=== PATIENT | female | born 1980 | race African-American/Black ===

== ENCOUNTER 2019-06-20 06:24 | Inpatient (IN) | payer MEDICAID ==
[2019-06-20] VITALS (9 sets, daily range): BP systolic 111–153; BP diastolic 70–106
[~2019-06-20] VITALS: Ht 152.4 cm; Wt 54.0 kg
[2019-06-20] MEDS ORDERED: IV NORMAL SALINE 1000ML BAG 1,000 ML IV SCH (06:45)
[2019-06-20] MEDS ORDERED: ONDANSETRON PF 4 MG/2 ML VIAL. IV ONE (07:00)
[2019-06-20] MEDS ORDERED: FAMOTIDINE 20 MG/2 ML VIAL IVP ONE (07:00)
[2019-06-20] MEDS ORDERED: ASPIRIN CHEWABLE 81 MG TABLET. PO ONE (07:00)
[2019-06-20 07:18] LABS: BASO % 1 % (0-3); EOS % 0 % (0-3); HEMATOCRIT 36.6 % (36.0-47.0); HEMOGLOBIN 11.8 g/dL (13.0-17.5); LYMPH # 1.4 x10^3/uL (1.0-4.8); LYMPH % 24 % (24-48); MEAN CORPUSCULAR HEMOGLOBIN 31 pg (25-35); MEAN CORPUSCULAR HGB CONC 32 g/dL (31-37); MEAN CORPUSCULAR VOLUME 95 fL (79-100); MONO # 0.4 x10^3/uL (0.0-1.1); MONO % 7 % (0-9); NEUT % 69 % (31-73); PLATELET COUNT 337 x10^3/uL (140-400); RED BLOOD COUNT 3.84 x10^6/uL (3.50-5.40); RED CELL DISTRIBUTION WIDTH 15.5 % (11.5-14.5); WHITE BLOOD COUNT 5.8 x10^3/uL (4.0-11.0)
--- NOTE | 2019-06-20 07:41 | RAD ---
AP chest x-ray HISTORY: Chest pain FINDINGS: Heart size normal. Mediastinal silhouette is normal. No pneumothorax, pulmonary opacities or pleural effusions. The bones are unremarkable. IMPRESSION: No acute process. Electronically signed by: Jim Dillon MD (06/20/2019 7:38 AM) [facility]
[2019-06-20 07:55] LABS: PROTHROMBIN TIME PATIENT 13.9 SEC (11.7-14.0)
[2019-06-20 08:07] LABS: ALBUMIN 3.7 g/dL (3.4-5.0); ALBUMIN/GLOBULIN RATIO 0.8 (1.0-1.7); CALCIUM 9.4 mg/dL (8.5-10.1); CREATININE 1.2 mg/dL (0.6-1.0); GFR 61.2; TOTAL BILIRUBIN 0.5 mg/dL (0.2-1.0); TOTAL PROTEIN 8.4 g/dL (6.4-8.2)
[2019-06-20 08:16] LABS: POTASSIUM 2.9 mmol/L (3.5-5.1)
[2019-06-20 08:52] LABS: BASE EXCESS ABG -7 mmol/L (-3-3); HCO3 ABG 18 mmol/L (21-28); PCO2 ABG 33 mmHg (35-46); PO2 ABG 96 mmHg (85-108); SAT O2 ABG 97 % (92-99)
[2019-06-20] MEDS ORDERED: IV NORMAL SALINE 1000ML BAG 1,000 ML IV ONE (09:00)
[2019-06-20 09:06] LABS: FIO2 ABG 21% RA
--- NOTE | 2019-06-20 09:09 | PHYS DOC ---
Past Medical History Past Medical History: Diabetes-Type I, Other Additional Past Medical Histor: gastroparesis Past Surgical History: Tubal ligation Alcohol Use: None Drug Use: None Adult General Chief Complaint Chief Complaint: CHEST PAIN HPI HPI Patient is a 38 year old female with history of type 1 diabetes who presents with complaining of chest pain. Patient complaining of constant substernal sharp chest pain for the last 3 days with radiation to her back and associated with nausea and frequent episodes of vomiting and one episode of diarrhea. Patient complaining of palpitation and shortness of breath and dizziness. Patient rated her pain 10 over 10. Patient states she was seen at [facility] 3 days ago and discharged home after negative evaluation at her pain is not getting better. Patient states she did not check her blood sugar for the last few days but took her medication. Patient is very anxious and crying during evaluation. Review of Systems Review of Systems Constitutional: Denies fever or chills [] Eyes: Denies change in visual acuity, redness, or eye pain [] HENT: Denies nasal congestion or sore throat [] Respiratory: Denies cough or shortness of breath [] Cardiovascular: No additional information not addressed in HPI [] GI: Denies abdominal pain, bloody stools, reports nausea, vomiting, diarrhea [] : Denies dysuria or hematuria [] Musculoskeletal: Denies back pain or joint pain [] Integument: Denies rash or skin lesions [] Neurologic: Denies headache, focal weakness or sensory changes [] Endocrine: Denies polyuria or polydipsia [] All other systems were reviewed and found to be within normal limits, except as documented in this note. Current Medications Current Medications Current Medications Medications (Trade) Dose Ordered Sig/Michel Start Time Stop Time Status Last Admin Dose Admin Aspirin (Children'S Aspirin) 324 mg 1X ONCE 06/20/19 07:00 06/20/19 07:01 DC 06/20/19 07:18 324 MG Famotidine (Pepcid Vial) 20 mg 1X ONCE 06/20/19 07:00 06/20/19 07:01 DC 06/20/19 07:18 20 MG Lorazepam (Ativan Inj) 1 mg 1X ONCE 06/20/19 07:30 06/20/19 07:31 DC 06/20/19 07:18 1 MG Ondansetron HCl (Zofran) 4 mg 1X ONCE 06/20/19 07:00 06/20/19 07:01 DC 06/20/19 07:18 4 MG Sodium Chloride 1,000 ml @ 1,000 mls/hr 1X ONCE 06/20/19 09:00 06/20/19 09:59 DC 06/20/19 09:09 1,000 MLS/HR Allergies Allergies Allergies Coded Allergies Type Severity Reaction Last Updated Verified No Known Drug Allergies 06/20/19 No Physical Exam Physical Exam Constitutional: Well developed, well nourished, moderate distress, non-toxic appearance. [] HENT: Normocephalic, atraumatic, oropharynx dry, no oral exudates, nose normal. [] Eyes: PERRLA, EOMI, conjunctiva normal, no discharge. [] Neck: Normal range of motion, no tenderness, supple, no stridor. [] Cardiovascular: Tachycardia, no murmur [] Lungs & Thorax: Bilateral breath sounds clear to auscultation [] Abdomen: Bowel sounds normal, soft, no tenderness, reproducible epigastric guarding, no masses, no pulsatile masses. [] Skin: Warm, dry, no erythema, no rash. [] Back: No tenderness, no CVA tenderness. [] Extremities: No tenderness, no cyanosis, no clubbing, ROM intact, no edema. [] Neurologic: Alert and oriented X 3, normal motor function, normal sensory function, no focal deficits noted. [] Psychologic: Affect anxious and tearful. Current Patient Data Vital Signs Vital Signs Date Time Temp Pulse Resp B/P (MAP) Pulse Ox O2 Delivery O2 Flow Rate FiO2 06/20/19 08:50 Room Air 06/20/19 08:33 108 16 122/82 (95) 06/20/19 06:27 98.4 98.0 98.4 Lab Values Laboratory Tests Test 06/20/19 06:38 06/20/19 07:08 06/20/19 07:40 06/20/19 08:20 Glucose (Fingerstick) 348 mg/dL (70-99) H White Blood Count 5.8 x10^3/uL (4.0-11.0) Red Blood Count 3.84 x10^6/uL (3.50-5.40) Hemoglobin 11.8 g/dL (13.0-17.5) L Hematocrit 36.6 % (36.0-47.0) Mean Corpuscular Volume 95 fL (79-100) Mean Corpuscular Hemoglobin 31 pg (25-35) Mean Corpuscular Hemoglobin Concent 32 g/dL (31-37) Red Cell Distribution Width 15.5 % (11.5-14.5) H Platelet Count 337 x10^3/uL (140-400) Neutrophils (%) (Auto) 69 % (31-73) Lymphocytes (%) (Auto) 24 % (24-48) Monocytes (%) (Auto) 7 % (0-9) Eosinophils (%) (Auto) 0 % (0-3) Basophils (%) (Auto) 1 % (0-3) Neutrophils # (Auto) 4.0 x10^3/uL (1.8-7.7) Lymphocytes # (Auto) 1.4 x10^3/uL (1.0-4.8) Monocytes # (Auto) 0.4 x10^3/uL (0.0-1.1) Eosinophils # (Auto) 0.0 x10^3/uL (0.0-0.7) Basophils # (Auto) 0.0 x10^3/uL (0.0-0.2) Prothrombin Time 13.9 SEC (11.7-14.0) Prothrombin Time INR 1.1 (0.8-1.1) Sodium Level 141 mmol/L (136-145) Potassium Level 2.9 mmol/L (3.5-5.1) *L Chloride Level 104 mmol/L (98-107) Carbon Dioxide Level 16 mmol/L (21-32) L Anion Gap 21 (6-14) H Blood Urea Nitrogen 6 mg/dL (7-20) L Creatinine 1.2 mg/dL (0.6-1.0) H Estimated GFR (Cockcroft-Gault) 61.2 BUN/Creatinine Ratio 5 (6-20) L Glucose Level 301 mg/dL (70-99) H Calcium Level 9.4 mg/dL (8.5-10.1) Magnesium Level 2.0 mg/dL (1.8-2.4) Total Bilirubin 0.5 mg/dL (0.2-1.0) Aspartate Amino Transferase (AST) 12 U/L (15-37) L Alanine Aminotransferase (ALT) 13 U/L (14-59) L Alkaline Phosphatase 73 U/L (46-116) Creatine Kinase 140 U/L (26-192) Troponin I Quantitative < 0.017 ng/mL (0.000-0.055) LP-Wjr-H-Type Natriuretic Peptide 68 pg/mL (0-124) Total Protein 8.4 g/dL (6.4-8.2) H Albumin 3.7 g/dL (3.4-5.0) Albumin/Globulin Ratio 0.8 (1.0-1.7) L Lipase 22 U/L (73-393) L D-Dimer (Nicole) 2.82 ug/mlFEU (0.00-0.50) H Test 06/20/19 08:24 06/20/19 08:30 06/20/19 09:03 O2 Saturation 97 % (92-99) Arterial Blood pH 7.36 (7.35-7.45) Arterial Blood pCO2 at Patient Temp 33 mmHg (35-46) L Arterial Blood pO2 at Patient Temp 96 mmHg (85-108) Arterial Blood HCO3 18 mmol/L (21-28) L Arterial Blood Base Excess -7 mmol/L (-3-3) L FiO2 21% ra Phosphorus Level 1.6 mg/dL (2.6-4.7) L Glucose (Fingerstick) 200 mg/dL (70-99) H Laboratory Tests 06/20/19 07:08 Laboratory Tests 06/20/19 07:40 EKG EKG EKG interpreted by me. EKG at 0630 showed sinus tachycardia at rate of 1:15, T- wave abnormality in inferior leads, no acute ST and T-wave elevation. Radiology/Procedures Radiology/Procedures [][facility] [address] [place], [place] [id number] IMAGING REPORT Signed PATIENT: TAMMY URBINA ACCOUNT: [id number] : 1980 LOCATION: ER AGE: 38 SEX: F EXAM STATUS: REG ER ORD. PHYSICIAN: ENMANUEL ALFREDO MD REASON: chest pain PROCEDURE: PORTABLE CHEST 1V AP chest x-ray HISTORY: Chest pain FINDINGS: Heart size normal. Mediastinal silhouette is normal. No pneumothorax, pulmonary opacities or pleural effusions. The bones are unremarkable. IMPRESSION: No acute process. Electronically signed by: Kennedy Dillon MD (06/20/2019 7:38 AM) [facility] DICTATED and SIGNED BY: KENNEDY DILLON MD DATE: 06/20/19 0738 [facility] [address] [place] [address] IMAGING REPORT Signed PATIENT: TAMMY URBINA ACCOUNT: [id number] : 1980 LOCATION: ER AGE: 38 SEX: F EXAM STATUS: REG ER ORD. PHYSICIAN: ENMANUEL ALFREDO MD REASON: epigastric pain PROCEDURE: ABDOMEN LTD Limited abdomen ultrasound HISTORY: Epigastric abdominal pain. FINDINGS: Imaged pancreas and upper abdominal aorta and IVC are normal. Normal liver echogenicity. No liver mass or nodularity documented. Elongation of the right hepatic lobe craniocaudal length of 17.5 cm could be mild anatomic variability or changes of mild hepatomegaly. No gallstones or inflammatory change of the gallbladder evident. There is a 3 mm nonshadowing echogenic nondependent focus of the gallbladder could be a small gallbladder cholesterol polyp. No biliary ductal dilation common body diameters 3 mm. Right renal length 9.5 cm, limited visualization of the lower pole due to rib shadowing, no right renal mass or hydronephrosis documented. Spleen and left kidney were not evaluated. IMPRESSION: 3 mm cholesterol polyp of the gallbladder. No gallstones or arthritic change of the gallbladder. No biliary ductal dilation. Electronically signed by: Kennedy Dillon MD (06/20/2019 9:18 AM) [facility] DICTATED and SIGNED BY: KENNEDY DILLON MD DATE: 06/20/19 0918 Course & Med Decision Making Course & Med Decision Making Pertinent Labs and Imaging studies reviewed. (See chart for details) Evaluation of patient in ER showed 38-year-old female patient with history of type 1 diabetes mellitus and complaining of chest pain for 3 days and nausea and frequent vomiting. Patient was very anxious with tachycardia at arrival to ER. Patient treated with IV fluid. Labs showed low bicarbonate and ABG showed pH of 7.36. Blood sugar was more than 300 at arrival that gradually decreased to 200 without insulin and insulin drip was not started. Plan to admit patient with diagnosis of DKA and chest pain. She had low potassium and oral potassium was g iven.Patient requiring admission for further evaluation and treatment. Discussed with Dr. Haider who is in agreement with admission. Discussed findings and plan with patient and family, who acknowledge understanding and agreement. Dragon Disclaimer Dragon Disclaimer This electronic medical record was generated, in whole or in part, using a voice recognition dictation system. Departure Departure Impression: Primary Impression: DKA (diabetic ketoacidoses) Additional Impressions: Chest pain Nausea and vomiting Polyp of gallbladder Anxiety Hypokalemia Disposition: ADMITTED INPATIENT (at 905) Admitting Physician: ISAURO (Dr. Haider accepted admission at 904) Condition: GUARDED Referrals: NO PCP (PCP) Critical Care Time Critical care time was 70 minutes exclusive of procedures. The HEART Score for CP Pts HEART Score for Chest Pain: HEART Score for Chest Pain Response (Comments) Value History Moderately Suspicious 1 ECG Nonspecific Repolarizatio 1 Age < 45 0 Risk Factors 1 or 2 Risk Factors 1 Troponin < Normal Limit 0 Total 3 Risk Factors: Risk Factors: DM, Current or recent (<one month) smoker, HTN, HLP, family history of CAD, obesity. Risk Scores: Score 0 - 3: 2.5% MACE over next 6 weeks - Discharge Home Score 4 - 6: 20.3% MACE over next 6 weeks - Admit for Clinical Observation Score 7 - 10: 72.7% MACE over next 6 weeks - Early Invasive Strategies Problem Qualifiers Primary Impression: DKA (diabetic ketoacidoses) Diabetes mellitus type: type 1 Diabetes mellitus complication detail: without coma Qualified Codes: E10.10 - Type 1 diabetes mellitus with ketoacidosis without coma Additional Impressions: Chest pain Chest pain type: unspecified Qualified Codes: R07.9 - Chest pain, unspecified Nausea and vomiting Vomiting type: unspecified Vomiting Intractability: non-intractable Qualified Codes: R11.2 - Nausea with vomiting, unspecified ENMANUEL ALFREDO MD Jun 20, 2019 09:09
--- NOTE | 2019-06-20 09:21 | RAD ---
Limited abdomen ultrasound HISTORY: Epigastric abdominal pain. FINDINGS: Imaged pancreas and upper abdominal aorta and IVC are normal. Normal liver echogenicity. No liver mass or nodularity documented. Elongation of the right hepatic lobe craniocaudal length of 17.5 cm could be mild anatomic variability or changes of mild hepatomegaly. No gallstones or inflammatory change of the gallbladder evident. There is a 3 mm nonshadowing echogenic nondependent focus of the gallbladder could be a small gallbladder cholesterol polyp. No biliary ductal dilation common body diameters 3 mm. Right renal length 9.5 cm, limited visualization of the lower pole due to rib shadowing, no right renal mass or hydronephrosis documented. Spleen and left kidney were not evaluated. IMPRESSION: 3 mm cholesterol polyp of the gallbladder. No gallstones or arthritic change of the gallbladder. No biliary ductal dilation. Electronically signed by: Jim Dillon MD (06/20/2019 9:18 AM) [facility]
[2019-06-20] MEDS ORDERED: POTASSIUM CHLORIDE 20 MEQ TABLET.ER. PO ONE (09:30)
[2019-06-20] MEDS ORDERED: POTASSIUM CHLORIDE 10MEQ 100 ML IV PRN ×2 (10:00)
[2019-06-20] MEDS ORDERED: INSULIN REGULAR VIAL 150 UNIT in 0.9 % SODIUM CHLORIDE 150ML 150 ML IV PRN (10:00)
[2019-06-20] MEDS ORDERED: DEXTROSE 50% 25 GM / 50ML DISP.SYRIN. IV PRN (11:15)
[2019-06-20] MEDS: POTASSIUM CHLORIDE 10MEQ 100 ML IV SCH ×8 (11:41→22:56)
[2019-06-20] MEDS: IV RINGERS,LACTATED 1000ML 1,000 ML IV SCH ×2 (11:42→22:56)
[2019-06-20] MEDS: INSULIN LISPRO 300 UNITS/3 ML VIAL. SQ SCH ×4 (11:48→16:39)
[2019-06-20] MEDS: oxyCODONE/APAP 5/325 1 TAB TABLET PO PRN (13:50)
[2019-06-20] MEDS: LIDOCAINE (700MG/PATCH) PATCH. TD SCH (13:50)
[2019-06-20] MEDS ORDERED: HALOPERIDOL LACTATE 5 MG/ML VIAL. IVP PRN (14:45)
[2019-06-20 15:29] LABS: BASO # 0.1 x10^3/uL (0.0-0.2); BASO % 1 % (0-3); EOS % 0 % (0-3); HEMATOCRIT 30.2 % (36.0-47.0); HEMOGLOBIN 9.9 g/dL (12.0-15.5); LYMPH # 2.5 x10^3/uL (1.0-4.8); LYMPH % 34 % (24-48); MEAN CORPUSCULAR HEMOGLOBIN 31 pg (25-35); MEAN CORPUSCULAR HGB CONC 33 g/dL (31-37); MEAN CORPUSCULAR VOLUME 94 fL (79-100); MONO # 0.6 x10^3/uL (0.0-1.1); MONO % 9 % (0-9); NEUT # 4.1 x10^3/uL (1.8-7.7); NEUT % 56 % (31-73); PLATELET COUNT 327 x10^3/uL (140-400); RED BLOOD COUNT 3.22 x10^6/uL (3.50-5.40); RED CELL DISTRIBUTION WIDTH 14.8 % (11.5-14.5); WHITE BLOOD COUNT 7.4 x10^3/uL (4.0-11.0)
--- NOTE | 2019-06-20 16:45 | PDOC1 ---
History and Physical Date of Admission Date of Admission DATE: 06/20/19 TIME: 16:36 History of Present Illness History of Present Illness Patient is a 38 year old female with history of type 1 diabetes complaining of back pain, acute pain to lower back. . Patient complaining of ongoing pain in her back and associated with nausea, she denies chest pain to me, but that was the story in the ER. she has vomited, but that is better, diarrhea x1 almost 12 hours ago when she was sleeping, she was at her boyfriends house near here last night, has not been here before. Patient rated her pain 10 over 10. Patient states she was seen at [facility] 2 days ago and discharged home after negative evaluation at her pain is not getting better. Patient states she did not check her blood sugar for the last few days but took her medication. Patient is very anxious and tearful, reports she was crying all night, but hasnt given a urine sample. Social History Smoke: No ALCOHOL: rare Drugs: Marijuana Current Problem List Problem List Problems Medical Problems: (1) Anxiety Status: Acute (2) Chest pain Status: Acute (3) DKA (diabetic ketoacidoses) Status: Acute (4) Hypokalemia Status: Acute (5) Nausea and vomiting Status: Acute (6) Polyp of gallbladder Status: Acute Current Medications Current Medications Current Medications Aspirin (Children'S Aspirin) 324 mg 1X ONCE PO Last administered on 06/20/19at 07:18; Start 06/20/19 at 07:00; Stop 06/20/19 at 07:01; Status DC Sodium Chloride 1,000 ml @ 1,000 mls/hr Q1H IV Last administered on 06/20/19at 07:17; Start 06/20/19 at 06:45; Stop 06/20/19 at 07:44; Status DC Ondansetron HCl (Zofran) 4 mg 1X ONCE IV Last administered on 06/20/19at 07:18; Start 06/20/19 at 07:00; Stop 06/20/19 at 07:01; Status DC Famotidine (Pepcid Vial) 20 mg 1X ONCE IVP Last administered on 06/20/19at 07:18; Start 06/20/19 at 07:00; Stop 06/20/19 at 07:01; Status DC Lorazepam (Ativan Inj) 1 mg 1X ONCE IVP Last administered on 06/20/19at 07:18; Start 06/20/19 at 07:30; Stop 06/20/19 at 07:31; Status DC Sodium Chloride 1,000 ml @ 1,000 mls/hr 1X ONCE IV Last administered on 06/20/19at 09:09; Start 06/20/19 at 09:00; Stop 06/20/19 at 09:59; Status DC Potassium Chloride (Klor-Con) 40 meq 1X ONCE PO Last administered on 06/20/19at 09:16; Start 06/20/19 at 09:30; Stop 06/20/19 at 09:31; Status DC Insulin Human Regular 150 unit/ Sodium Chloride 151.5 ml @ 0 mls/hr CONT PRN PRN IV VOMITING; Start 06/20/19 at 10:00 Potassium Chloride/Water 100 ml @ 100 mls/hr PRN Q1HR PRN IV PER PROTOCOL; Start 06/20/19 at 10:00 Potassium Chloride/Water 100 ml @ 100 mls/hr PRN Q1HR PRN IV PER PROTOCOL; Start 06/20/19 at 10:00 Insulin Human Lispro (HumaLOG) 0-5 UNITS TIDWMEALS SQ Last administered on 06/20/19at 11:48; Start 06/20/19 at 12:00 Dextrose (Dextrose 50%-Water Syringe) 12.5 gm PRN Q15MIN PRN IV SEE COMMENTS; Start 06/20/19 at 11:15 Insulin Glargine (Lantus Syringe) 10 unit QHS SQ ; Start 06/20/19 at 21:00 Insulin Human Lispro (HumaLOG) 5 units TIDWMEALS SQ Last administered on 06/20/19at 11:49; Start 06/20/19 at 12:00 Ringer's Solution 1,000 ml @ 100 mls/hr Q10H IV Last administered on 06/20/19at 11:42; Start 06/20/19 at 12:00 Potassium Chloride/Water 100 ml @ 100 mls/hr Q1H IV Last administered on 06/20/19at 15:42; Start 06/20/19 at 12:00; Stop 06/20/19 at 19:59 Oxycodone/ Acetaminophen (Percocet 5/325) 1 tab PRN Q4HRS PRN PO PAIN Last administered on 06/20/19at 13:50; Start 06/20/19 at 13:45 Lidocaine (Lidoderm) 1 patch DAILY TD Last administered on 06/20/19at 13:50; Start 06/20/19 at 14:00 Miscellaneous (Lidoderm Patch Removal) 1 ea QHS ; Start 06/20/19 at 21:00 Lorazepam (Ativan Inj) 1 mg PRN Q4HRS PRN IVP ANXIETY / AGITATION Last administered on 06/20/19at 16:35; Start 06/20/19 at 14:30 Haloperidol Lactate (Haldol Inj) 5 mg PRN Q6HRS PRN IVP AGITATION; Start 06/20/19 at 14:45 Allergies Allergies: Coded Allergies: No Known Drug Allergies (Unverified , 06/20/19) ROS General: YES: Chills, Fatigue, Malaise PSYCHOLOGICAL ROS: YES: Anxiety, Irritablity, Sleep disturbances Eyes: No Blurry vision, No Decreased vision, No Double vision, No Dry eyes, No Excessive tearing, No Eye Pain, No Itchy Eyes, No Loss of vision, No Photophobia, No Scotomata, No Uses contacts, No Uses glasses, No Other HEENT: YES: Heacaches; No: Visual Changes, Hearing change, Nasal congestion, Nasal discharge, Oral lesions, Sinus pain, Sore Throat, Epistaxis, Sneezing, Snoring, Tinnitus, Ve rtigo, Vocal changes, Other Respiratory: No: Cough, Hemoptysis, Orthopnea, Pleuritic Pain, Shortness of br eath, SOB with excertion, Sputum Changes, Stridor, Tachypnea, Wheezing, Other Cardiovascular: yes Chest Pain; No Palpitations, No Orthopnea, No Paroxysmal Noc. Dyspnea, No Edema, No Lt Headedness, No Other Gastrointestinal: Yes Nausea, Yes Vomiting, Yes Diarrhea Musculoskeletal: Yes Joint Pain, Yes Pain In: (back) Neurological: Yes Gait Disturbance Skin: Yes Dry Skin; No Eczema, No Hair Changes, No Lumps, No Mole Changes, No Mottling, No Nail Changes, No Pruritus, No Rash, No Skin Lesion Changes, No Other, No Acne Physical Exam General: Alert, Cooperative, moderate distress, Other HEENT: PERRLA, EOMI Lungs: Clear to auscultation Heart: S1S2 Extremities: No cyanosis Skin: No rashes Neuro: Normal tone, Sensation intact Psych/Mental Status: Other (anxious, agitated, upset, emotional) Vitals Vitals Vital Signs Date Time Temp Pulse Resp B/P (MAP) Pulse Ox O2 Delivery O2 Flow Rate FiO2 06/20/19 16:00 Room Air 06/20/19 16:00 98.2 104 21 111/70 (84) 100 98.2 06/20/19 06:27 98.0 Labs Labs Laboratory Tests Test 06/20/19 06:38 06/20/19 07:08 06/20/19 07:40 06/20/19 08:20 Glucose (Fingerstick) 348 mg/dL (70-99) White Blood Count 5.8 x10^3/uL (4.0-11.0) Red Blood Count 3.84 x10^6/uL (3.50-5.40) Hemoglobin 11.8 g/dL (13.0-17.5) Hematocrit 36.6 % (36.0-47.0) Mean Corpuscular Volume 95 fL (79-100) Mean Corpuscular Hemoglobin 31 pg (25-35) Mean Corpuscular Hemoglobin Concent 32 g/dL (31-37) Red Cell Distribution Width 15.5 % (11.5-14.5) Platelet Count 337 x10^3/uL (140-400) Neutrophils (%) (Auto) 69 % (31-73) Lymphocytes (%) (Auto) 24 % (24-48) Monocytes (%) (Auto) 7 % (0-9) Eosinophils (%) (Auto) 0 % (0-3) Basophils (%) (Auto) 1 % (0-3) Neutrophils # (Auto) 4.0 x10^3/uL (1.8-7.7) Lymphocytes # (Auto) 1.4 x10^3/uL (1.0-4.8) Monocytes # (Auto) 0.4 x10^3/uL (0.0-1.1) Eosinophils # (Auto) 0.0 x10^3/uL (0.0-0.7) Basophils # (Auto) 0.0 x10^3/uL (0.0-0.2) Prothrombin Time 13.9 SEC (11.7-14.0) Prothromb Time International Ratio 1.1 (0.8-1.1) Sodium Level 141 mmol/L (136-145) Potassium Level 2.9 mmol/L (3.5-5.1) Chloride Level 104 mmol/L (98-107) Carbon Dioxide Level 16 mmol/L (21-32) Anion Gap 21 (6-14) Blood Urea Nitrogen 6 mg/dL (7-20) Creatinine 1.2 mg/dL (0.6-1.0) Estimated GFR (Cockcroft-Gault) 61.2 BUN/Creatinine Ratio 5 (6-20) Glucose Level 301 mg/dL (70-99) Calcium Level 9.4 mg/dL (8.5-10.1) Magnesium Level 2.0 mg/dL (1.8-2.4) Total Bilirubin 0.5 mg/dL (0.2-1.0) Aspartate Amino Transf (AST/SGOT) 12 U/L (15-37) Alanine Aminotransferase (ALT/SGPT) 13 U/L (14-59) Alkaline Phosphatase 73 U/L (46-116) Creatine Kinase 140 U/L (26-192) Troponin I Quantitative < 0.017 ng/mL (0.000-0.055) HJ-Jos-M-Type Natriuretic Peptide 68 pg/mL (0-124) Total Protein 8.4 g/dL (6.4-8.2) Albumin 3.7 g/dL (3.4-5.0) Albumin/Globulin Ratio 0.8 (1.0-1.7) Lipase 22 U/L (73-393) D-Dimer (Nicole) 2.82 ug/mlFEU (0.00-0.50) Test 06/20/19 08:24 06/20/19 08:30 06/20/19 09:03 06/20/19 13:50 O2 Saturation 97 % (92-99) Arterial Blood pH 7.36 (7.35-7.45) Arterial Blood pCO2 at Patient Temp 33 mmHg (35-46) Arterial Blood pO2 at Patient Temp 96 mmHg (85-108) Arterial Blood HCO3 18 mmol/L (21-28) Arterial Blood Base Excess -7 mmol/L (-3-3) FiO2 21% ra Phosphorus Level 1.6 mg/dL (2.6-4.7) Glucose (Fingerstick) 200 mg/dL (70-99) White Blood Count 7.4 x10^3/uL (4.0-11.0) Red Blood Count 3.22 x10^6/uL (3.50-5.40) Hemoglobin 9.9 g/dL (12.0-15.5) Hematocrit 30.2 % (36.0-47.0) Mean Corpuscular Volume 94 fL (79-100) Mean Corpuscular Hemoglobin 31 pg (25-35) Mean Corpuscular Hemoglobin Concent 33 g/dL (31-37) Red Cell Distribution Width 14.8 % (11.5-14.5) Platelet Count 327 x10^3/uL (140-400) Neutrophils (%) (Auto) 56 % (31-73) Lymphocytes (%) (Auto) 34 % (24-48) Monocytes (%) (Auto) 9 % (0-9) Eosinophils (%) (Auto) 0 % (0-3) Basophils (%) (Auto) 1 % (0-3) Neutrophils # (Auto) 4.1 x10^3/uL (1.8-7.7) Lymphocytes # (Auto) 2.5 x10^3/uL (1.0-4.8) Monocytes # (Auto) 0.6 x10^3/uL (0.0-1.1) Eosinophils # (Auto) 0.0 x10^3/uL (0.0-0.7) Basophils # (Auto) 0.1 x10^3/uL (0.0-0.2) Troponin I Quantitative < 0.017 ng/mL (0.000-0.055) Laboratory Tests Test 06/20/19 06:38 06/20/19 07:08 06/20/19 07:40 06/20/19 08:20 Glucose (Fingerstick) 348 mg/dL (70-99) White Blood Count 5.8 x10^3/uL (4.0-11.0) Red Blood Count 3.84 x10^6/uL (3.50-5.40) Hemoglobin 11.8 g/dL (13.0-17.5) Hematocrit 36.6 % (36.0-47.0) Mean Corpuscular Volume 95 fL (79-100) Mean Corpuscular Hemoglobin 31 pg (25-35) Mean Corpuscular Hemoglobin Concent 32 g/dL (31-37) Red Cell Distribution Width 15.5 % (11.5-14.5) Platelet Count 337 x10^3/uL (140-400) Neutrophils (%) (Auto) 69 % (31-73) Lymphocytes (%) (Auto) 24 % (24-48) Monocytes (%) (Auto) 7 % (0-9) Eosinophils (%) (Auto) 0 % (0-3) Basophils (%) (Auto) 1 % (0-3) Neutrophils # (Auto) 4.0 x10^3/uL (1.8-7.7) Lymphocytes # (Auto) 1.4 x10^3/uL (1.0-4.8) Monocytes # (Auto) 0.4 x10^3/uL (0.0-1.1) Eosinophils # (Auto) 0.0 x10^3/uL (0.0-0.7) Basophils # (Auto) 0.0 x10^3/uL (0.0-0.2) Prothrombin Time 13.9 SEC (11.7-14.0) Prothromb Time International Ratio 1.1 (0.8-1.1) Sodium Level 141 mmol/L (136-145) Potassium Level 2.9 mmol/L (3.5-5.1) Chloride Level 104 mmol/L (98-107) Carbon Dioxide Level 16 mmol/L (21-32) Anion Gap 21 (6-14) Blood Urea Nitrogen 6 mg/dL (7-20) Creatinine 1.2 mg/dL (0.6-1.0) Estimated GFR (Cockcroft-Gault) 61.2 BUN/Creatinine Ratio 5 (6-20) Glucose Level 301 mg/dL (70-99) Calcium Level 9.4 mg/dL (8.5-10.1) Magnesium Level 2.0 mg/dL (1.8-2.4) Total Bilirubin 0.5 mg/dL (0.2-1.0) Aspartate Amino Transf (AST/SGOT) 12 U/L (15-37) Alanine Aminotransferase (ALT/SGPT) 13 U/L (14-59) Alkaline Phosphatase 73 U/L (46-116) Creatine Kinase 140 U/L (26-192) Troponin I Quantitative < 0.017 ng/mL (0.000-0.055) SC-Pki-Y-Type Natriuretic Peptide 68 pg/mL (0-124) Total Protein 8.4 g/dL (6.4-8.2) Albumin 3.7 g/dL (3.4-5.0) Albumin/Globulin Ratio 0.8 (1.0-1.7) Lipase 22 U/L (73-393) D-Dimer (Nicole) 2.82 ug/mlFEU (0.00-0.50) Test 06/20/19 08:24 06/20/19 08:30 06/20/19 09:03 06/20/19 13:50 O2 Saturation 97 % (92-99) Arterial Blood pH 7.36 (7.35-7.45) Arterial Blood pCO2 at Patient Temp 33 mmHg (35-46) Arterial Blood pO2 at Patient Temp 96 mmHg (85-108) Arterial Blood HCO3 18 mmol/L (21-28) Arterial Blood Base Excess -7 mmol/L (-3-3) FiO2 21% ra Phosphorus Level 1.6 mg/dL (2.6-4.7) Glucose (Fingerstick) 200 mg/dL (70-99) White Blood Count 7.4 x10^3/uL (4.0-11.0) Red Blood Count 3.22 x10^6/uL (3.50-5.40) Hemoglobin 9.9 g/dL (12.0-15.5) Hematocrit 30.2 % (36.0-47.0) Mean Corpuscular Volume 94 fL (79-100) Mean Corpuscular Hemoglobin 31 pg (25-35) Mean Corpuscular Hemoglobin Concent 33 g/dL (31-37) Red Cell Distribution Width 14.8 % (11.5-14.5) Platelet Count 327 x10^3/uL (140-400) Neutrophils (%) (Auto) 56 % (31-73) Lymphocytes (%) (Auto) 34 % (24-48) Monocytes (%) (Auto) 9 % (0-9) Eosinophils (%) (Auto) 0 % (0-3) Basophils (%) (Auto) 1 % (0-3) Neutrophils # (Auto) 4.1 x10^3/uL (1.8-7.7) Lymphocytes # (Auto) 2.5 x10^3/uL (1.0-4.8) Monocytes # (Auto) 0.6 x10^3/uL (0.0-1.1) Eosinophils # (Auto) 0.0 x10^3/uL (0.0-0.7) Basophils # (Auto) 0.1 x10^3/uL (0.0-0.2) Troponin I Quantitative < 0.017 ng/mL (0.000-0.055) VTE Prophylaxis Ordered VTE Prophylaxis Devices: No VTE Pharmacological Prophylaxi: Yes Assessment/Plan Assessment/Plan Dm1, poor control acute back pain, anxiety disorder suspect substance abuse disorder ANTONIO FRANCO MD Jun 20, 2019 16:45
[2019-06-20 17:30] LABS: CALCIUM 8.5 mg/dL (8.5-10.1); CREATININE 0.7 mg/dL (0.6-1.0); GFR 113.9; POTASSIUM 3.8 mmol/L (3.5-5.1)
[2019-06-20 17:37] LABS: ALBUMIN/GLOBULIN RATIO 0.7 (1.0-1.7); MAGNESIUM 1.6 mg/dL (1.8-2.4); PHOSPHORUS 1.3 mg/dL (2.6-4.7); TOTAL BILIRUBIN 0.6 mg/dL (0.2-1.0); TOTAL PROTEIN 7.3 g/dL (6.4-8.2)
[2019-06-20] MEDS ORDERED: ONDANSETRON PF 4 MG/2 ML VIAL. IVP PRN (18:30)
[2019-06-20] MEDS ORDERED: MAGNESIUM SULFATE 2GM 50 ML IV ONE (19:00)
[2019-06-20] MEDS ORDERED: IOHEXOL 300 MG/ML 100ML VIAL. IV ONE (19:15)
[2019-06-20] MEDS ORDERED: IOHEXOL 240 MG/ML 50ML VIAL. PO ONE (19:15)
[2019-06-20] MEDS ORDERED: CONTRAST GIVEN. MC PRN (19:30)
[2019-06-20] MEDS: PATCH REMOVAL. MC SCH (21:00)
[2019-06-20] MEDS ORDERED: INSULIN GLARGINE SYRINGE. SQ SCH (21:00)
[2019-06-20] MEDS: INSULIN GLARGINE SYRINGE. SQ SCH (22:57)
[2019-06-20] MEDS: ENOXAPARIN 40 MG/0.4 ML SYRINGE. SQ SCH (22:57)
--- NOTE | 2019-06-20 23:19 | PDOC2 ---
CARDIOLOGY CONSULT NOTE [facility]IF COMPLAINT: Body aches and nausea/vomiting HPI: 38 y.o woman w/ pmhx as noted below presenting with nausea, vomiting. No chest pain. Pain mostly related to emesis. No angina. No dyspnea at rest or with ambulation. No syncope or palpitations. PMHX: DM1 SOCHX: No alcohol, tob or illicits. FAMHX: NC CURRENT MEDS: Current Medications Medications (Trade) Dose Ordered Sig/Michel Route PRN Reason Start Time Stop Time Status Last Admin Dose Admin Aspirin (Children'S Aspirin) 324 mg 1X ONCE PO 06/20/19 07:00 06/20/19 07:01 DC 06/20/19 07:18 Sodium Chloride 1,000 ml @ 1,000 mls/hr Q1H IV 06/20/19 06:45 06/20/19 07:44 DC 06/20/19 07:17 Ondansetron HCl (Zofran) 4 mg 1X ONCE IV 06/20/19 07:00 06/20/19 07:01 DC 06/20/19 07:18 Famotidine (Pepcid Vial) 20 mg 1X ONCE IVP 06/20/19 07:00 06/20/19 07:01 DC 06/20/19 07:18 Lorazepam (Ativan Inj) 1 mg 1X ONCE IVP 06/20/19 07:30 06/20/19 07:31 DC 06/20/19 07:18 Sodium Chloride 1,000 ml @ 1,000 mls/hr 1X ONCE IV 06/20/19 09:00 06/20/19 09:59 DC 06/20/19 09:09 Potassium Chloride (Klor-Con) 40 meq 1X ONCE PO 06/20/19 09:30 06/20/19 09:31 DC 06/20/19 09:16 Insulin Human Lispro (HumaLOG) 0-5 UNITS TIDWMEALS SQ 06/20/19 12:00 06/20/19 16:38 Insulin Human Lispro (HumaLOG) 5 units TIDWMEALS SQ 06/20/19 12:00 06/20/19 18:21 DC 06/20/19 16:39 Ringer's Solution 1,000 ml @ 100 mls/hr Q10H IV 06/20/19 12:00 06/20/19 22:56 Potassium Chloride/Water 100 ml @ 100 mls/hr Q1H IV 06/20/19 12:00 06/20/19 19:59 DC 06/20/19 22:56 Oxycodone/ Acetaminophen (Percocet 5/325) 1 tab PRN Q4HRS PRN PO PAIN 06/20/19 13:45 06/20/19 13:50 Lidocaine (Lidoderm) 1 patch DAILY TD 06/20/19 14:00 06/20/19 13:50 Miscellaneous (Lidoderm Patch Removal) 1 ea QHS MC 06/20/19 21:00 06/20/19 21:00 Lorazepam (Ativan Inj) 1 mg PRN Q4HRS PRN IVP ANXIETY / AGITATION 06/20/19 14:30 06/20/19 16:35 Enoxaparin Sodium (Lovenox 40mg Syringe) 40 mg Q24H SQ 06/20/19 21:00 06/20/19 22:57 Insulin Glargine (Lantus Syringe) 13 unit QHS SQ 06/20/19 21:00 06/20/19 22:57 ALLERGIES: Allergies Coded Allergies Type Severity Reaction Last Updated Verified No Known Drug Allergies 06/20/19 No ROS: Negative unless otherwise noted above in HPI PHYSICAL EXAM: Vital Signs/I&O: Vital Signs Date Time Temp Pulse Resp B/P (MAP) Pulse Ox O2 Delivery O2 Flow Rate FiO2 06/20/19 20:00 Room Air 06/20/19 19:55 97.7 103 17 116/73 (87) 97 97.7 06/20/19 06:27 98.0 Physical Exam: SHe is in moderate distress from emesis Tachycardic clr lungs diffuse body aches on palpation of the back and chest No edema mild diffuse abd tenderness No focal neurologic deficits. DIAGNOSTIC TESTING: Trop/ekg negative. Lab Laboratory Tests Test 06/20/19 06:38 06/20/19 07:08 06/20/19 07:40 06/20/19 08:20 Glucose (Fingerstick) 348 mg/dL (70-99) H White Blood Count 5.8 x10^3/uL (4.0-11.0) Red Blood Count 3.84 x10^6/uL (3.50-5.40) Hemoglobin 11.8 g/dL (13.0-17.5) L Hematocrit 36.6 % (36.0-47.0) Mean Corpuscular Volume 95 fL (79-100) Mean Corpuscular Hemoglobin 31 pg (25-35) Mean Corpuscular Hemoglobin Concent 32 g/dL (31-37) Red Cell Distribution Width 15.5 % (11.5-14.5) H Platelet Count 337 x10^3/uL (140-400) Neutrophils (%) (Auto) 69 % (31-73) Lymphocytes (%) (Auto) 24 % (24-48) Monocytes (%) (Auto) 7 % (0-9) Eosinophils (%) (Auto) 0 % (0-3) Basophils (%) (Auto) 1 % (0-3) Neutrophils # (Auto) 4.0 x10^3/uL (1.8-7.7) Lymphocytes # (Auto) 1.4 x10^3/uL (1.0-4.8) Monocytes # (Auto) 0.4 x10^3/uL (0.0-1.1) Eosinophils # (Auto) 0.0 x10^3/uL (0.0-0.7) Basophils # (Auto) 0.0 x10^3/uL (0.0-0.2) Prothrombin Time 13.9 SEC (11.7-14.0) Prothromb Time International Ratio 1.1 (0.8-1.1) Sodium Level 141 mmol/L (136-145) Potassium Level 2.9 mmol/L (3.5-5.1) *L Chloride Level 104 mmol/L (98-107) Carbon Dioxide Level 16 mmol/L (21-32) L Anion Gap 21 (6-14) H Blood Urea Nitrogen 6 mg/dL (7-20) L Creatinine 1.2 mg/dL (0.6-1.0) H Estimated GFR (Cockcroft-Gault) 61.2 BUN/Creatinine Ratio 5 (6-20) L Glucose Level 301 mg/dL (70-99) H Calcium Level 9.4 mg/dL (8.5-10.1) Total Bilirubin 0.5 mg/dL (0.2-1.0) Aspartate Amino Transf (AST/SGOT) 12 U/L (15-37) L Alkaline Phosphatase 73 U/L (46-116) Creatine Kinase 140 U/L (26-192) Total Protein 8.4 g/dL (6.4-8.2) H Albumin 3.7 g/dL (3.4-5.0) Albumin/Globulin Ratio 0.8 (1.0-1.7) L Lipase 22 U/L (73-393) L D-Dimer (Nicole) 2.82 ug/mlFEU (0.00-0.50) H Test 06/20/19 08:24 06/20/19 08:30 06/20/19 09:03 06/20/19 11:06 O2 Saturation 97 % (92-99) Arterial Blood pH 7.36 (7.35-7.45) Arterial Blood pCO2 at Patient Temp 33 mmHg (35-46) L Arterial Blood pO2 at Patient Temp 96 mmHg (85-108) Arterial Blood HCO3 18 mmol/L (21-28) L Arterial Blood Base Excess -7 mmol/L (-3-3) L FiO2 21% ra Phosphorus Level 1.6 mg/dL (2.6-4.7) L Glucose (Fingerstick) 200 mg/dL (70-99) H 232 mg/dL (70-99) H Test 06/20/19 13:50 06/20/19 16:37 06/20/19 17:14 06/20/19 20:56 White Blood Count 7.4 x10^3/uL (4.0-11.0) Red Blood Count 3.22 x10^6/uL (3.50-5.40) L Hemoglobin 9.9 g/dL (12.0-15.5) L Hematocrit 30.2 % (36.0-47.0) L Mean Corpuscular Volume 94 fL (79-100) Mean Corpuscular Hemoglobin 31 pg (25-35) Mean Corpuscular Hemoglobin Concent 33 g/dL (31-37) Red Cell Distribution Width 14.8 % (11.5-14.5) H Platelet Count 327 x10^3/uL (140-400) Neutrophils (%) (Auto) 56 % (31-73) Lymphocytes (%) (Auto) 34 % (24-48) Monocytes (%) (Auto) 9 % (0-9) Eosinophils (%) (Auto) 0 % (0-3) Basophils (%) (Auto) 1 % (0-3) Neutrophils # (Auto) 4.1 x10^3/uL (1.8-7.7) Lymphocytes # (Auto) 2.5 x10^3/uL (1.0-4.8) Monocytes # (Auto) 0.6 x10^3/uL (0.0-1.1) Eosinophils # (Auto) 0.0 x10^3/uL (0.0-0.7) Basophils # (Auto) 0.1 x10^3/uL (0.0-0.2) Glucose (Fingerstick) 266 mg/dL (70-99) H 182 mg/dL (70-99) H Sodium Level 140 mmol/L (136-145) Potassium Level 3.8 mmol/L (3.5-5.1) Chloride Level 106 mmol/L (98-107) Carbon Dioxide Level 17 mmol/L (21-32) L Anion Gap 17 (6-14) H Blood Urea Nitrogen 5 mg/dL (7-20) L Creatinine 0.7 mg/dL (0.6-1.0) Estimated GFR (Cockcroft-Gault) 113.9 BUN/Creatinine Ratio 7 (6-20) Glucose Level 260 mg/dL (70-99) H Calcium Level 8.5 mg/dL (8.5-10.1) Phosphorus Level 1.3 mg/dL (2.6-4.7) L Total Bilirubin 0.6 mg/dL (0.2-1.0) Aspartate Amino Transf (AST/SGOT) 10 U/L (15-37) L Alkaline Phosphatase 61 U/L (46-116) Total Protein 7.3 g/dL (6.4-8.2) Albumin 3.0 g/dL (3.4-5.0) L Albumin/Globulin Ratio 0.7 (1.0-1.7) L Laboratory Tests 06/20/19 13:50 06/20/19 17:14 ASSESSMENT: 1. Non-cardiac chest pain 2. DM PLAN: 1. Continue tx of gastroparesis and DKA 2. Will obtain echo to rule out occult cardiomyopathy. Supportive care. Thanks KI VELÁZQUEZ MD Jun 20, 2019 23:19
[2019-06-20 23:49] LABS: BILIRUBIN,URINE NEGATIVE (NEG); CLARITY,URINE CLEAR; COLOR,URINE YELLOW; NITRITE,URINE NEGATIVE (NEG); PROTEIN,URINE NEGATIVE (NEG-TRACE)
[2019-06-21] LABS: AMPHETAMINE/METHAMPHETAMINE NEG (NEG); BARBITURATES NEG (NEG); BENZODIAZEPINES NEG (NEG); CANNABINOIDS NEG (NEG); COCAINE NEG (NEG); METHADONE NEG (NEG); OPIATES NEG (NEG); PHENCYCLIDINE NEG (NEG)
[2019-06-21 00:09] LABS: BACTERIA,URINE FEW /HPF (0-FEW); SQUAMOUS EPITHELIAL CELL,UR FEW /LPF
[2019-06-21 03:40] VITALS: BP 112/72
[2019-06-21 05:19] LABS: BASO % 0 % (0-3); EOS # 0.1 x10^3/uL (0.0-0.7); EOS % 1 % (0-3); HEMATOCRIT 34.3 % (36.0-47.0); LYMPH # 2.3 x10^3/uL (1.0-4.8); LYMPH % 39 % (24-48); MEAN CORPUSCULAR HEMOGLOBIN 31 pg (25-35); MEAN CORPUSCULAR HGB CONC 32 g/dL (31-37); MEAN CORPUSCULAR VOLUME 96 fL (79-100); MONO # 0.4 x10^3/uL (0.0-1.1); MONO % 6 % (0-9); NEUT # 3.1 x10^3/uL (1.8-7.7); NEUT % 53 % (31-73); PLATELET COUNT 300 x10^3/uL (140-400); RED BLOOD COUNT 3.57 x10^6/uL (3.50-5.40); RED CELL DISTRIBUTION WIDTH 15.3 % (11.5-14.5); WHITE BLOOD COUNT 5.9 x10^3/uL (4.0-11.0)
[2019-06-21 06:22] LABS: ALBUMIN 3.1 g/dL (3.4-5.0); ALBUMIN/GLOBULIN RATIO 0.7 (1.0-1.7); CALCIUM 8.8 mg/dL (8.5-10.1); CREATININE 0.8 mg/dL (0.6-1.0); GFR 97.7; POTASSIUM 4.6 mmol/L (3.5-5.1); TOTAL BILIRUBIN 0.6 mg/dL (0.2-1.0); TOTAL PROTEIN 7.8 g/dL (6.4-8.2)
[2019-06-21 06:28] LABS: CHOLESTEROL/HDL RATIO 2.8
[2019-06-21 07:00] VITALS: BP 110/68
[2019-06-21] MEDS ORDERED: INSULIN LISPRO 300 UNITS/3 ML VIAL. SQ ONE (07:00)
[2019-06-21] MEDS: INSULIN LISPRO 300 UNITS/3 ML VIAL. SQ SCH ×6 (08:00→17:35)
[2019-06-21] MEDS: SODIUM BICARBONATE 650 MG TABLET. PO SCH ×3 (08:05→21:47)
[2019-06-21] MEDS: IV RINGERS,LACTATED 1000ML 1,000 ML IV SCH ×2 (08:05→17:33)
[2019-06-21] MEDS: LIDOCAINE (700MG/PATCH) PATCH. TD SCH (08:18)
[2019-06-21] MEDS ORDERED: CONTRAST GIVEN. MC PRN (08:45)
[2019-06-21] MEDS ORDERED: IOHEXOL 300 MG/ML 100ML VIAL. IV ONE (09:00)
[2019-06-21] MEDS ORDERED: IOHEXOL 240 MG/ML 50ML VIAL. PO ONE (09:00)
--- NOTE | 2019-06-21 10:04 | RAD ---
CT abdomen and pelvis with contrast HISTORY: Abdominal pain, back pain, nausea. TECHNIQUE: Helical CT imaging abdomen and pelvis with 75 mL Omnipaque 300 intravenous contrast. Abdomen findings: Small calcified granuloma right lower lobe. Focal fat left hepatic lobe adjacent of the falciform ligament. Kidneys, adrenals, spleen, pancreas and gallbladder are unremarkable. There is a varicosity which indicates from the right renal vein traversing along the right-sided colon and appears to communicate with the ileocolic mesenteric vein. There is no obvious thrombosis of the mesenteric vein. The renal veins demonstrate patent contrast enhancement as well. There may also be a collateral bridging between the right ovarian vein and the varicosity, which may indicate some chronic stenosis or occlusion although no discrete filling defect to suggest a thrombus evident. Incomplete visualization of the appendix is visualized segment adjacent cecum is normal coronal image 22 and sagittal images 20-43 filled with air and a diameter of 3 mm. No obstruction or inflammation the GI tract. No abdominal fluid or adenopathy. Bones unremarkable. 1 cm nodular densities lower right breast image 9 a small mass is not excluded. Pelvis findings: Retroverted uterus. Pelvic phleboliths. Ovaries, bladder, rectum and bones are unremarkable. No pelvic fluid or adenopathy. IMPRESSION: 1. No acute process. Appendix is negative. Incidental findings described above. 2. 1 cm nodular density of the right lower breast a small mass is not excluded, this could be further assessed with outpatient mammography and sonography. Electronically signed by: Jim Dillon MD (06/21/2019 10:01 AM) [facility]
[2019-06-21] MEDS ORDERED: KETOROLAC 30 MG/ML VIAL. IVP PRN (10:30)
--- NOTE | 2019-06-21 10:34 | PDOC ---
PROGRESS NOTES Chief Complaint Chief Complaint A/P: DKA - on insulin GTT overnight, tried to eat Hypophosphatemia - will replace Dm1, poor control Acute back pain - intractable with negative w/u. No pancreatitis Anxiety disorder Right foot wound Concern for possible underlying primary psychiatric disorder History of Present Illness History of Present Illness Ms Huynh is a 38 yo F w/ PMHx type 1 diabetes who p/w complaining of back pain, acute pain to lower back.. Patient complaining of ongoing pain in her back and associated with nausea, she denies chest pain to me, but that was the story in the ER. she has vomited, but that is better, diarrhea x1 almost 12 hours ago when she was sleeping. No change in diet recently. No recent sick contacts. She does have a wound on her right foot, states she scratches at it every night after she takes her lantus. Has been present for 5 days Patient rated her pain 10 over 10. Patient states she was seen at [facility] on Halloween and discharged home after negative evaluation at her pain is not getting better. Patient states she did not check her blood sugar for the last few days but took her medication. Patient is very anxious and tearful, w rithing in pain. In DKA on initial admission with phos level 1.6, Mg 1.3. Still with gap this morning, tried to eat per her boyfriend. Gap still not closed this morning. Foot wound noted by night nursing. Still with nausea, but she is asking for food. Blood glucose dropped after 20u Lispro. Will repeat labs, low dose toradol, dilaudid. Flexeril for back spasms, lidoderm patch. Vitals Vitals Vital Signs Date Time Temp Pulse Resp B/P (MAP) Pulse Ox O2 Delivery O2 Flow Rate FiO2 06/21/19 08:00 Room Air 98.0 06/21/19 07:00 99.4 105 18 110/68 (82) 94 99.4 Physical Exam General: Alert, Cooperative, moderate distress, Other Extremities: No cyanosis Skin: No rashes Labs LABS Laboratory Tests Test 06/20/19 11:06 06/20/19 13:50 06/20/19 16:37 06/20/19 17:14 Glucose (Fingerstick) 232 mg/dL (70-99) 266 mg/dL (70-99) White Blood Count 7.4 x10^3/uL (4.0-11.0) Red Blood Count 3.22 x10^6/uL (3.50-5.40) Hemoglobin 9.9 g/dL (12.0-15.5) Hematocrit 30.2 % (36.0-47.0) Mean Corpuscular Volume 94 fL (79-100) Mean Corpuscular Hemoglobin 31 pg (25-35) Mean Corpuscular Hemoglobin Concent 33 g/dL (31-37) Red Cell Distribution Width 14.8 % (11.5-14.5) Platelet Count 327 x10^3/uL (140-400) Neutrophils (%) (Auto) 56 % (31-73) Lymphocytes (%) (Auto) 34 % (24-48) Monocytes (%) (Auto) 9 % (0-9) Eosinophils (%) (Auto) 0 % (0-3) Basophils (%) (Auto) 1 % (0-3) Neutrophils # (Auto) 4.1 x10^3/uL (1.8-7.7) Lymphocytes # (Auto) 2.5 x10^3/uL (1.0-4.8) Monocytes # (Auto) 0.6 x10^3/uL (0.0-1.1) Eosinophils # (Auto) 0.0 x10^3/uL (0.0-0.7) Basophils # (Auto) 0.1 x10^3/uL (0.0-0.2) Troponin I Quantitative < 0.017 ng/mL (0.000-0.055) Sodium Level 140 mmol/L (136-145) Potassium Level 3.8 mmol/L (3.5-5.1) Chloride Level 106 mmol/L (98-107) Carbon Dioxide Level 17 mmol/L (21-32) Anion Gap 17 (6-14) Blood Urea Nitrogen 5 mg/dL (7-20) Creatinine 0.7 mg/dL (0.6-1.0) Estimated GFR (Cockcroft-Gault) 113.9 BUN/Creatinine Ratio 7 (6-20) Glucose Level 260 mg/dL (70-99) Calcium Level 8.5 mg/dL (8.5-10.1) Phosphorus Level 1.3 mg/dL (2.6-4.7) Magnesium Level 1.6 mg/dL (1.8-2.4) Total Bilirubin 0.6 mg/dL (0.2-1.0) Aspartate Amino Transf (AST/SGOT) 10 U/L (15-37) Alanine Aminotransferase (ALT/SGPT) 9 U/L (14-59) Alkaline Phosphatase 61 U/L (46-116) Total Protein 7.3 g/dL (6.4-8.2) Albumin 3.0 g/dL (3.4-5.0) Albumin/Globulin Ratio 0.7 (1.0-1.7) Test 06/20/19 17:15 06/20/19 20:56 06/20/19 23:35 06/21/19 04:45 Troponin I Quantitative < 0.017 ng/mL (0.000-0.055) Glucose (Fingerstick) 182 mg/dL (70-99) Urine Collection Type Unknown Urine Color Yellow Urine Clarity Clear Urine pH 6.0 Urine Specific [place] 1.025 Urine Protein Negative mg/dL (NEG-TRACE) Urine Glucose (UA) >=1000 mg/dL (NEG) Urine Ketones (Stick) >=80 mg/dL (NEG) Urine Blood Negative (NEG) Urine Nitrite Negative (NEG) Urine Bilirubin Negative (NEG) Urine Urobilinogen Dipstick 1.0 mg/dL (0.2 mg/dL) Urine Leukocyte Esterase Negative (NEG) Urine RBC 1-2 /HPF (0-2) Urine WBC 5-10 /HPF (0-4) Urine Squamous Epithelial Cells Few /LPF Urine Bacteria Few /HPF (0-FEW) Urine Mucus Slight /LPF Urine Opiates Screen Neg (NEG) Urine Methadone Screen Neg (NEG) Urine Barbiturates Neg (NEG) Urine Phencyclidine Screen Neg (NEG) Urine Amphetamine/Methamphetamine Neg (NEG) Urine Benzodiazepines Screen Neg (NEG) Urine Cocaine Screen Neg (NEG) Urine Cannabinoids Screen Neg (NEG) Urine Ethyl Alcohol Neg (NEG) White Blood Count 5.9 x10^3/uL (4.0-11.0) Red Blood Count 3.57 x10^6/uL (3.50-5.40) Hemoglobin 11.0 g/dL (12.0-15.5) Hematocrit 34.3 % (36.0-47.0) Mean Corpuscular Volume 96 fL (79-100) Mean Corpuscular Hemoglobin 31 pg (25-35) Mean Corpuscular Hemoglobin Concent 32 g/dL (31-37) Red Cell Distribution Width 15.3 % (11.5-14.5) Platelet Count 300 x10^3/uL (140-400) Neutrophils (%) (Auto) 53 % (31-73) Lymphocytes (%) (Auto) 39 % (24-48) Monocytes (%) (Auto) 6 % (0-9) Eosinophils (%) (Auto) 1 % (0-3) Basophils (%) (Auto) 0 % (0-3) Neutrophils # (Auto) 3.1 x10^3/uL (1.8-7.7) Lymphocytes # (Auto) 2.3 x10^3/uL (1.0-4.8) Monocytes # (Auto) 0.4 x10^3/uL (0.0-1.1) Eosinophils # (Auto) 0.1 x10^3/uL (0.0-0.7) Basophils # (Auto) 0.0 x10^3/uL (0.0-0.2) Sodium Level 136 mmol/L (136-145) Potassium Level 4.6 mmol/L (3.5-5.1) Chloride Level 103 mmol/L (98-107) Carbon Dioxide Level 10 mmol/L (21-32) Anion Gap 23 (6-14) Blood Urea Nitrogen 5 mg/dL (7-20) Creatinine 0.8 mg/dL (0.6-1.0) Estimated GFR (Cockcroft-Gault) 97.7 BUN/Creatinine Ratio 6 (6-20) Glucose Level 360 mg/dL (70-99) Calcium Level 8.8 mg/dL (8.5-10.1) Total Bilirubin 0.6 mg/dL (0.2-1.0) Aspartate Amino Transf (AST/SGOT) 12 U/L (15-37) Alanine Aminotransferase (ALT/SGPT) 8 U/L (14-59) Alkaline Phosphatase 70 U/L (46-116) Total Protein 7.8 g/dL (6.4-8.2) Albumin 3.1 g/dL (3.4-5.0) Albumin/Globulin Ratio 0.7 (1.0-1.7) Triglycerides Level 56 mg/dL (0-150) Cholesterol Level 170 mg/dL (0-200) LDL Cholesterol, Calculated 98 mg/dL (0-100) VLDL Cholesterol, Calculated 11 mg/dL (0-40) Non-HDL Cholesterol Calculated 109 mg/dL (0-129) HDL Cholesterol 61 mg/dL (40-60) Cholesterol/HDL Ratio 2.8 Test 06/21/19 07:28 Glucose (Fingerstick) 323 mg/dL (70-99) Assessment and Plan Assessmemt and Plan Problems Medical Problems: (1) Anxiety Status: Acute (2) Chest pain Status: Acute (3) DKA (diabetic ketoacidoses) Status: Acute (4) Hypokalemia Status: Acute (5) Nausea and vomiting Status: Acute (6) Polyp of gallbladder Status: Acute Comment Review of Relevant I have reviewed the following items ania (where applicable) has been applied. Labs Laboratory Tests Test 06/20/19 06:38 06/20/19 07:08 06/20/19 07:40 06/20/19 08:20 Glucose (Fingerstick) 348 mg/dL (70-99) White Blood Count 5.8 x10^3/uL (4.0-11.0) Red Blood Count 3.84 x10^6/uL (3.50-5.40) Hemoglobin 11.8 g/dL (13.0-17.5) Hematocrit 36.6 % (36.0-47.0) Mean Corpuscular Volume 95 fL (79-100) Mean Corpuscular Hemoglobin 31 pg (25-35) Mean Corpuscular Hemoglobin Concent 32 g/dL (31-37) Red Cell Distribution Width 15.5 % (11.5-14.5) Platelet Count 337 x10^3/uL (140-400) Neutrophils (%) (Auto) 69 % (31-73) Lymphocytes (%) (Auto) 24 % (24-48) Monocytes (%) (Auto) 7 % (0-9) Eosinophils (%) (Auto) 0 % (0-3) Basophils (%) (Auto) 1 % (0-3) Neutrophils # (Auto) 4.0 x10^3/uL (1.8-7.7) Lymphocytes # (Auto) 1.4 x10^3/uL (1.0-4.8) Monocytes # (Auto) 0.4 x10^3/uL (0.0-1.1) Eosinophils # (Auto) 0.0 x10^3/uL (0.0-0.7) Basophils # (Auto) 0.0 x10^3/uL (0.0-0.2) Prothrombin Time 13.9 SEC (11.7-14.0) Prothromb Time International Ratio 1.1 (0.8-1.1) Sodium Level 141 mmol/L (136-145) Potassium Level 2.9 mmol/L (3.5-5.1) Chloride Level 104 mmol/L (98-107) Carbon Dioxide Level 16 mmol/L (21-32) Anion Gap 21 (6-14) Blood Urea Nitrogen 6 mg/dL (7-20) Creatinine 1.2 mg/dL (0.6-1.0) Estimated GFR (Cockcroft-Gault) 61.2 BUN/Creatinine Ratio 5 (6-20) Glucose Level 301 mg/dL (70-99) Calcium Level 9.4 mg/dL (8.5-10.1) Magnesium Level 2.0 mg/dL (1.8-2.4) Total Bilirubin 0.5 mg/dL (0.2-1.0) Aspartate Amino Transf (AST/SGOT) 12 U/L (15-37) Alanine Aminotransferase (ALT/SGPT) 13 U/L (14-59) Alkaline Phosphatase 73 U/L (46-116) Creatine Kinase 140 U/L (26-192) Troponin I Quantitative < 0.017 ng/mL (0.000-0.055) HI-Ngo-O-Type Natriuretic Peptide 68 pg/mL (0-124) Total Protein 8.4 g/dL (6.4-8.2) Albumin 3.7 g/dL (3.4-5.0) Albumin/Globulin Ratio 0.8 (1.0-1.7) Lipase 22 U/L (73-393) D-Dimer (Nicole) 2.82 ug/mlFEU (0.00-0.50) Test 06/20/19 08:24 06/20/19 08:30 06/20/19 09:03 06/20/19 11:06 O2 Saturation 97 % (92-99) Arterial Blood pH 7.36 (7.35-7.45) Arterial Blood pCO2 at Patient Temp 33 mmHg (35-46) Arterial Blood pO2 at Patient Temp 96 mmHg (85-108) Arterial Blood HCO3 18 mmol/L (21-28) Arterial Blood Base Excess -7 mmol/L (-3-3) FiO2 21% ra Phosphorus Level 1.6 mg/dL (2.6-4.7) Glucose (Fingerstick) 200 mg/dL (70-99) 232 mg/dL (70-99) Test 06/20/19 13:50 06/20/19 16:37 06/20/19 17:14 06/20/19 17:15 White Blood Count 7.4 x10^3/uL (4.0-11.0) Red Blood Count 3.22 x10^6/uL (3.50-5.40) Hemoglobin 9.9 g/dL (12.0-15.5) Hematocrit 30.2 % (36.0-47.0) Mean Corpuscular Volume 94 fL (79-100) Mean Corpuscular Hemoglobin 31 pg (25-35) Mean Corpuscular Hemoglobin Concent 33 g/dL (31-37) Red Cell Distribution Width 14.8 % (11.5-14.5) Platelet Count 327 x10^3/uL (140-400) Neutrophils (%) (Auto) 56 % (31-73) Lymphocytes (%) (Auto) 34 % (24-48) Monocytes (%) (Auto) 9 % (0-9) Eosinophils (%) (Auto) 0 % (0-3) Basophils (%) (Auto) 1 % (0-3) Neutrophils # (Auto) 4.1 x10^3/uL (1.8-7.7) Lymphocytes # (Auto) 2.5 x10^3/uL (1.0-4.8) Monocytes # (Auto) 0.6 x10^3/uL (0.0-1.1) Eosinophils # (Auto) 0.0 x10^3/uL (0.0-0.7) Basophils # (Auto) 0.1 x10^3/uL (0.0-0.2) Troponin I Quantitative < 0.017 ng/mL (0.000-0.055) < 0.017 ng/mL (0.000-0.055) Glucose (Fingerstick) 266 mg/dL (70-99) Sodium Level 140 mmol/L (136-145) Potassium Level 3.8 mmol/L (3.5-5.1) Chloride Level 106 mmol/L (98-107) Carbon Dioxide Level 17 mmol/L (21-32) Anion Gap 17 (6-14) Blood Urea Nitrogen 5 mg/dL (7-20) Creatinine 0.7 mg/dL (0.6-1.0) Estimated GFR (Cockcroft-Gault) 113.9 BUN/Creatinine Ratio 7 (6-20) Glucose Level 260 mg/dL (70-99) Calcium Level 8.5 mg/dL (8.5-10.1) Phosphorus Level 1.3 mg/dL (2.6-4.7) Magnesium Level 1.6 mg/dL (1.8-2.4) Total Bilirubin 0.6 mg/dL (0.2-1.0) Aspartate Amino Transf (AST/SGOT) 10 U/L (15-37) Alanine Aminotransferase (ALT/SGPT) 9 U/L (14-59) Alkaline Phosphatase 61 U/L (46-116) Total Protein 7.3 g/dL (6.4-8.2) Albumin 3.0 g/dL (3.4-5.0) Albumin/Globulin Ratio 0.7 (1.0-1.7) Test 06/20/19 20:56 06/20/19 23:35 06/21/19 04:45 06/21/19 07:28 Glucose (Fingerstick) 182 mg/dL (70-99) 323 mg/dL (70-99) Urine Collection Type Unknown Urine Color Yellow Urine Clarity Clear Urine pH 6.0 Urine Specific [place] 1.025 Urine Protein Negative mg/dL (NEG-TRACE) Urine Glucose (UA) >=1000 mg/dL (NEG) Urine Ketones (Stick) >=80 mg/dL (NEG) Urine Blood Negative (NEG) Urine Nitrite Negative (NEG) Urine Bilirubin Negative (NEG) Urine Urobilinogen Dipstick 1.0 mg/dL (0.2 mg/dL) Urine Leukocyte Esterase Negative (NEG) Urine RBC 1-2 /HPF (0-2) Urine WBC 5-10 /HPF (0-4) Urine Squamous Epithelial Cells Few /LPF Urine Bacteria Few /HPF (0-FEW) Urine Mucus Slight /LPF Urine Opiates Screen Neg (NEG) Urine Methadone Screen Neg (NEG) Urine Barbiturates Neg (NEG) Urine Phencyclidine Screen Neg (NEG) Urine Amphetamine/Methamphetamine Neg (NEG) Urine Benzodiazepines Screen Neg (NEG) Urine Cocaine Screen Neg (NEG) Urine Cannabinoids Screen Neg (NEG) Urine Ethyl Alcohol Neg (NEG) White Blood Count 5.9 x10^3/uL (4.0-11.0) Red Blood Count 3.57 x10^6/uL (3.50-5.40) Hemoglobin 11.0 g/dL (12.0-15.5) Hematocrit 34.3 % (36.0-47.0) Mean Corpuscular Volume 96 fL (79-100) Mean Corpuscular Hemoglobin 31 pg (25-35) Mean Corpuscular Hemoglobin Concent 32 g/dL (31-37) Red Cell Distribution Width 15.3 % (11.5-14.5) Platelet Count 300 x10^3/uL (140-400) Neutrophils (%) (Auto) 53 % (31-73) Lymphocytes (%) (Auto) 39 % (24-48) Monocytes (%) (Auto) 6 % (0-9) Eosinophils (%) (Auto) 1 % (0-3) Basophils (%) (Auto) 0 % (0-3) Neutrophils # (Auto) 3.1 x10^3/uL (1.8-7.7) Lymphocytes # (Auto) 2.3 x10^3/uL (1.0-4.8) Monocytes # (Auto) 0.4 x10^3/uL (0.0-1.1) Eosinophils # (Auto) 0.1 x10^3/uL (0.0-0.7) Basophils # (Auto) 0.0 x10^3/uL (0.0-0.2) Sodium Level 136 mmol/L (136-145) Potassium Level 4.6 mmol/L (3.5-5.1) Chloride Level 103 mmol/L (98-107) Carbon Dioxide Level 10 mmol/L (21-32) Anion Gap 23 (6-14) Blood Urea Nitrogen 5 mg/dL (7-20) Creatinine 0.8 mg/dL (0.6-1.0) Estimated GFR (Cockcroft-Gault) 97.7 BUN/Creatinine Ratio 6 (6-20) Glucose Level 360 mg/dL (70-99) Calcium Level 8.8 mg/dL (8.5-10.1) Total Bilirubin 0.6 mg/dL (0.2-1.0) Aspartate Amino Transf (AST/SGOT) 12 U/L (15-37) Alanine Aminotransferase (ALT/SGPT) 8 U/L (14-59) Alkaline Phosphatase 70 U/L (46-116) Total Protein 7.8 g/dL (6.4-8.2) Albumin 3.1 g/dL (3.4-5.0) Albumin/Globulin Ratio 0.7 (1.0-1.7) Triglycerides Level 56 mg/dL (0-150) Cholesterol Level 170 mg/dL (0-200) LDL Cholesterol, Calculated 98 mg/dL (0-100) VLDL Cholesterol, Calculated 11 mg/dL (0-40) Non-HDL Cholesterol Calculated 109 mg/dL (0-129) HDL Cholesterol 61 mg/dL (40-60) Cholesterol/HDL Ratio 2.8 Laboratory Tests Test 06/20/19 11:06 06/20/19 13:50 06/20/19 16:37 06/20/19 17:14 Glucose (Fingerstick) 232 mg/dL (70-99) 266 mg/dL (70-99) White Blood Count 7.4 x10^3/uL (4.0-11.0) Red Blood Count 3.22 x10^6/uL (3.50-5.40) Hemoglobin 9.9 g/dL (12.0-15.5) Hematocrit 30.2 % (36.0-47.0) Mean Corpuscular Volume 94 fL (79-100) Mean Corpuscular Hemoglobin 31 pg (25-35) Mean Corpuscular Hemoglobin Concent 33 g/dL (31-37) Red Cell Distribution Width 14.8 % (11.5-14.5) Platelet Count 327 x10^3/uL (140-400) Neutrophils (%) (Auto) 56 % (31-73) Lymphocytes (%) (Auto) 34 % (24-48) Monocytes (%) (Auto) 9 % (0-9) Eosinophils (%) (Auto) 0 % (0-3) Basophils (%) (Auto) 1 % (0-3) Neutrophils # (Auto) 4.1 x10^3/uL (1.8-7.7) Lymphocytes # (Auto) 2.5 x10^3/uL (1.0-4.8) Monocytes # (Auto) 0.6 x10^3/uL (0.0-1.1) Eosinophils # (Auto) 0.0 x10^3/uL (0.0-0.7) Basophils # (Auto) 0.1 x10^3/uL (0.0-0.2) Troponin I Quantitative < 0.017 ng/mL (0.000-0.055) Sodium Level 140 mmol/L (136-145) Potassium Level 3.8 mmol/L (3.5-5.1) Chloride Level 106 mmol/L (98-107) Carbon Dioxide Level 17 mmol/L (21-32) Anion Gap 17 (6-14) Blood Urea Nitrogen 5 mg/dL (7-20) Creatinine 0.7 mg/dL (0.6-1.0) Estimated GFR (Cockcroft-Gault) 113.9 BUN/Creatinine Ratio 7 (6-20) Glucose Level 260 mg/dL (70-99) Calcium Level 8.5 mg/dL (8.5-10.1) Phosphorus Level 1.3 mg/dL (2.6-4.7) Magnesium Level 1.6 mg/dL (1.8-2.4) Total Bilirubin 0.6 mg/dL (0.2-1.0) Aspartate Amino Transf (AST/SGOT) 10 U/L (15-37) Alanine Aminotransferase (ALT/SGPT) 9 U/L (14-59) Alkaline Phosphatase 61 U/L (46-116) Total Protein 7.3 g/dL (6.4-8.2) Albumin 3.0 g/dL (3.4-5.0) Albumin/Globulin Ratio 0.7 (1.0-1.7) Test 06/20/19 17:15 06/20/19 20:56 06/20/19 23:35 06/21/19 04:45 Troponin I Quantitative < 0.017 ng/mL (0.000-0.055) Glucose (Fingerstick) 182 mg/dL (70-99) Urine Collection Type Unknown Urine Color Yellow Urine Clarity Clear Urine pH 6.0 Urine Specific [place]ell 1.025 Urine Protein Negative mg/dL (NEG-TRACE) Urine Glucose (UA) >=1000 mg/dL (NEG) Urine Ketones (Stick) >=80 mg/dL (NEG) Urine Blood Negative (NEG) Urine Nitrite Negative (NEG) Urine Bilirubin Negative (NEG) Urine Urobilinogen Dipstick 1.0 mg/dL (0.2 mg/dL) Urine Leukocyte Esterase Negative (NEG) Urine RBC 1-2 /HPF (0-2) Urine WBC 5-10 /HPF (0-4) Urine Squamous Epithelial Cells Few /LPF Urine Bacteria Few /HPF (0-FEW) Urine Mucus Slight /LPF Urine Opiates Screen Neg (NEG) Urine Methadone Screen Neg (NEG) Urine Barbiturates Neg (NEG) Urine Phencyclidine Screen Neg (NEG) Urine Amphetamine/Methamphetamine Neg (NEG) Urine Benzodiazepines Screen Neg (NEG) Urine Cocaine Screen Neg (NEG) Urine Cannabinoids Screen Neg (NEG) Urine Ethyl Alcohol Neg (NEG) White Blood Count 5.9 x10^3/uL (4.0-11.0) Red Blood Count 3.57 x10^6/uL (3.50-5.40) Hemoglobin 11.0 g/dL (12.0-15.5) Hematocrit 34.3 % (36.0-47.0) Mean Corpuscular Volume 96 fL (79-100) Mean Corpuscular Hemoglobin 31 pg (25-35) Mean Corpuscular Hemoglobin Concent 32 g/dL (31-37) Red Cell Distribution Width 15.3 % (11.5-14.5) Platelet Count 300 x10^3/uL (140-400) Neutrophils (%) (Auto) 53 % (31-73) Lymphocytes (%) (Auto) 39 % (24-48) Monocytes (%) (Auto) 6 % (0-9) Eosinophils (%) (Auto) 1 % (0-3) Basophils (%) (Auto) 0 % (0-3) Neutrophils # (Auto) 3.1 x10^3/uL (1.8-7.7) Lymphocytes # (Auto) 2.3 x10^3/uL (1.0-4.8) Monocytes # (Auto) 0.4 x10^3/uL (0.0-1.1) Eosinophils # (Auto) 0.1 x10^3/uL (0.0-0.7) Basophils # (Auto) 0.0 x10^3/uL (0.0-0.2) Sodium Level 136 mmol/L (136-145) Potassium Level 4.6 mmol/L (3.5-5.1) Chloride Level 103 mmol/L (98-107) Carbon Dioxide Level 10 mmol/L (21-32) Anion Gap 23 (6-14) Blood Urea Nitrogen 5 mg/dL (7-20) Creatinine 0.8 mg/dL (0.6-1.0) Estimated GFR (Cockcroft-Gault) 97.7 BUN/Creatinine Ratio 6 (6-20) Glucose Level 360 mg/dL (70-99) Calcium Level 8.8 mg/dL (8.5-10.1) Total Bilirubin 0.6 mg/dL (0.2-1.0) Aspartate Amino Transf (AST/SGOT) 12 U/L (15-37) Alanine Aminotransferase (ALT/SGPT) 8 U/L (14-59) Alkaline Phosphatase 70 U/L (46-116) Total Protein 7.8 g/dL (6.4-8.2) Albumin 3.1 g/dL (3.4-5.0) Albumin/Globulin Ratio 0.7 (1.0-1.7) Triglycerides Level 56 mg/dL (0-150) Cholesterol Level 170 mg/dL (0-200) LDL Cholesterol, Calculated 98 mg/dL (0-100) VLDL Cholesterol, Calculated 11 mg/dL (0-40) Non-HDL Cholesterol Calculated 109 mg/dL (0-129) HDL Cholesterol 61 mg/dL (40-60) Cholesterol/HDL Ratio 2.8 Test 06/21/19 07:28 Glucose (Fingerstick) 323 mg/dL (70-99) Medications Current Medications Aspirin (Children'S Aspirin) 324 mg 1X ONCE PO Last administered on 06/20/19at 07:18; Start 06/20/19 at 07:00; Stop 06/20/19 at 07:01; Status DC Sodium Chloride 1,000 ml @ 1,000 mls/hr Q1H IV Last administered on 06/20/19at 07:17; Start 06/20/19 at 06:45; Stop 06/20/19 at 07:44; Status DC Ondansetron HCl (Zofran) 4 mg 1X ONCE IV Last administered on 06/20/19at 07:18; Start 06/20/19 at 07:00; Stop 06/20/19 at 07:01; Status DC Famotidine (Pepcid Vial) 20 mg 1X ONCE IVP Last administered on 06/20/19at 07:18; Start 06/20/19 at 07:00; Stop 06/20/19 at 07:01; Status DC Lorazepam (Ativan Inj) 1 mg 1X ONCE IVP Last administered on 06/20/19at 07:18; Start 06/20/19 at 07:30; Stop 06/20/19 at 07:31; Status DC Sodium Chloride 1,000 ml @ 1,000 mls/hr 1X ONCE IV Last administered on 06/20/19at 09:09; Start 06/20/19 at 09:00; Stop 06/20/19 at 09:59; Status DC Potassium Chloride (Klor-Con) 40 meq 1X ONCE PO Last administered on 06/20/19at 09:16; Start 06/20/19 at 09:30; Stop 06/20/19 at 09:31; Status DC Insulin Human Regular 150 unit/ Sodium Chloride 151.5 ml @ 0 mls/hr CONT PRN PRN IV VOMITING; Start 06/20/19 at 10:00 Potassium Chloride/Water 100 ml @ 100 mls/hr PRN Q1HR PRN IV PER PROTOCOL; Start 06/20/19 at 10:00 Potassium Chloride/Water 100 ml @ 100 mls/hr PRN Q1HR PRN IV PER PROTOCOL; Start 06/20/19 at 10:00 Insulin Human Lispro (HumaLOG) 0-5 UNITS TIDWMEALS SQ Last administered on 06/20/19at 16:38; Start 06/20/19 at 12:00 Dextrose (Dextrose 50%-Water Syringe) 12.5 gm PRN Q15MIN PRN IV SEE COMMENTS; Start 06/20/19 at 11:15 Insulin Glargine (Lantus Syringe) 10 unit QHS SQ ; Start 06/20/19 at 21:00; Stop 06/20/19 at 18:21; Status DC Insulin Human Lispro (HumaLOG) 5 units TIDWMEALS SQ Last administered on 06/20/19 16:39; Start 06/20/19 at 12:00; Stop 06/20/19 at 18:21; Status DC Ringer's Solution 1,000 ml @ 100 mls/hr Q10H IV Last administered on 06/21/19 08:05; Start 06/20/19 at 12:00 Potassium Chloride/Water 100 ml @ 100 mls/hr Q1H IV Last administered on 06/20/19 22:56; Start 06/20/19 at 12:00; Stop 06/20/19 at 19:59; Status DC Oxycodone/ Acetaminophen (Percocet 5/325) 1 tab PRN Q4HRS PRN PO PAIN Last administered on 06/20/19 13:50; Start 06/20/19 at 13:45 Lidocaine (Lidoderm) 1 patch DAILY TD Last administered on 06/21/19 08:18; Start 06/20/19 at 14:00 Miscellaneous (Lidoderm Patch Removal) 1 ea QHS MC Last administered on 06/20/19 21:00; Start 06/20/19 at 21:00 Lorazepam (Ativan Inj) 1 mg PRN Q4HRS PRN IVP ANXIETY / AGITATION Last administered on 06/20/19 16:35; Start 06/20/19 at 14:30 Haloperidol Lactate (Haldol Inj) 5 mg PRN Q6HRS PRN IVP AGITATION; Start 06/20/19 at 14:45 Enoxaparin Sodium (Lovenox Per Pharmacy Prophylaxis Dosing) 1 each PRN DAILY PRN MC SEE COMMENTS; Start 06/20/19 at 16:45 Enoxaparin Sodium (Lovenox 40mg Syringe) 40 mg Q24H SQ Last administered on 06/20/19 22:57; Start 06/20/19 at 21:00 Ondansetron HCl (Zofran) 8 mg PRN Q8HRS PRN IVP NAUSEA/VOMITING; Start 06/20/19 at 18:30 Ondansetron HCl (Zofran) 8 mg PRN Q8HRS PRN IVP NAUSEA/VOMITING; Start 06/20/19 at 18:30; Status UNV Insulin Glargine (Lantus Syringe) 13 unit QHS SQ Last administered on 06/20/19at 22:57; Start 06/20/19 at 21:00 Insulin Human Lispro (HumaLOG) 8 units TIDWMEALS SQ Last administered on 06/21/19at 08:14; Start 06/21/19 at 08:00 Magnesium Sulfate 50 ml @ 25 mls/hr 1X ONCE IV Last administered on 06/21/19at 01:24; Start 06/20/19 at 19:00; Stop 06/20/19 at 20:59; Status DC Iohexol (Omnipaque 240 Mg/ml) 30 ml 1X ONCE PO ; Start 06/20/19 at 19:15; Stop 06/20/19 at 19:16; Status DC Iohexol (Omnipaque 300 Mg/ml) 75 ml 1X ONCE IV ; Start 06/20/19 at 19:15; Stop 06/20/19 at 19:16; Status DC Info (CONTRAST GIVEN -- Rx MONITORING) 1 each PRN DAILY PRN MC SEE COMMENTS; Start 06/20/19 at 19:30; Stop 06/22/19 at 19:29 Sodium Bicarbonate (Sodium Bicarbonate) 1,300 mg TID PO Last administered on 06/21/19at 08:05; Start 06/21/19 at 09:00 Insulin Human Lispro (HumaLOG) 12 units 1X ONCE SQ Last administered on 06/21/19at 08:13; Start 06/21/19 at 07:00; Stop 06/21/19 at 07:01; Status DC Iohexol (Omnipaque 300 Mg/ml) 75 ml 1X ONCE IV Last administered on 06/21/19at 09:00; Start 06/21/19 at 09:00; Stop 06/21/19 at 09:01; Status DC Iohexol (Omnipaque 240 Mg/ml) 30 ml 1X ONCE PO Last administered on 06/21/19at 09:00; Start 06/21/19 at 09:00; Stop 06/21/19 at 09:01; Status DC Info (CONTRAST GIVEN -- Rx MONITORING) 1 each PRN DAILY PRN MC SEE COMMENTS; Start 06/21/19 at 08:45; Stop 06/23/19 at 08:44 Vitals/I & O Vital Sign - Last 24 Hours 06/20/19 06/20/19 06/20/19 06/20/19 10:45 11:00 12:00 12:00 Temp 97.5 97.5 Pulse 104 116 Resp 18 17 B/P (MAP) 125/86 (99) 130/92 (105) Pulse Ox 100 100 O2 Delivery Room Air Room Air Room Air Room Air 06/20/19 06/20/19 06/20/19 06/20/19 13:00 14:00 15:00 16:00 Temp 98.2 98.2 Pulse 110 118 106 104 Resp 22 48 21 21 B/P (MAP) 139/91 (107) 153/98 (116) 149/105 (120) 111/70 (84) Pulse Ox 100 100 100 100 O2 Delivery Room Air Room Air Room Air Room Air 06/20/19 06/20/19 06/20/19 06/20/19 16:00 18:00 19:55 20:00 Temp 98.6 97.7 98.6 97.7 Pulse 117 103 Resp 20 17 B/P (MAP) 146/106 (119) 116/73 (87) Pulse Ox 100 97 O2 Delivery Room Air Room Air Room Air Room Air 06/20/19 06/21/19 06/21/19 06/21/19 23:47 03:40 07:00 08:00 Temp 98.6 98.1 99.4 98.6 98.1 99.4 Pulse 97 101 105 Resp 20 17 18 B/P (MAP) 111/77 (88) 112/72 (85) 110/68 (82) Pulse Ox 96 97 94 O2 Delivery Room Air Room Air Room Air Room Air O2 Flow Rate 98.0 Intake and Output 06/20/19 06/20/19 06/21/19 15:00 23:00 07:00 Intake Total 2400 ml 628 ml 60 ml Output Total 0 ml 400 ml Balance 2400 ml 628 ml -340 ml PERRY MONTANO MD Jun 21, 2019 10:34
[2019-06-21 11:23] VITALS: BP 119/73
[2019-06-21 11:51] LABS: MAGNESIUM 1.9 mg/dL (1.8-2.4); PHOSPHORUS 0.9 mg/dL (2.6-4.7)
[2019-06-21] MEDS ORDERED: SODIUM PHOSPHATE 20 MMOL in IV DEXTROSE 5% 250 ML IV ONE (12:00)
--- NOTE | 2019-06-21 12:15 | PDOC2 ---
GI CONSULT Reason For Consult: N, V, pain HPI: HPI: 38 y/o female admitted with DKA; presented with acute N, V, D and chest pain for a few days. Did have what would be consistent with viral prodrome before. Currently denies any pain or emesis. Chest pain was squeezing and radiated to interscapular area. Typically no heartburn or dysphagia. No PUD, GB, liver or pancreatic history. During admission for DKA in [place] had EGD and GES; GES appar ently abnormal (though in setting of DKA). Results of EGD unclear. Smokes MJ occasionally. No real alcohol. Some diarrhea with current syndrome, but typically no diarrhea, constipation or any history of overt bleeding. Wt down some. Appetite OK. GIFH negative. No h/o food emesis at home. PMH: PMH: DM1, left tibial plateau fracture. S/p BTL, ORIF fracture with metal plate. FH: Family History: Other (No GI issues) Social History: Smoke: No ALCOHOL: rare Drugs: Marijuana ROS: GEN: Denies fevers, chills, sweats HEENT: Denies blurred vision, sore throat CV: Denies chest pain RESP: Denies shortness of air, cough GI: Per HPI : Denies hematuria, dysuria ENDO: Denies weight changes NEURO: Denies confusion, dizziness MSK: Denies weakness, joint pain/swelling SKIN: Denies jaundice, pruritus Vitals: Vitals: Vital Signs Date Time Temp Pulse Resp B/P (MAP) Pulse Ox O2 Delivery O2 Flow Rate FiO2 06/21/19 11:23 97.5 99 18 119/73 (88) 96 Room Air 97.5 06/21/19 08:00 98.0 Labs: Labs: Laboratory Tests Test 06/20/19 13:50 06/20/19 16:37 06/20/19 17:14 06/20/19 17:15 White Blood Count 7.4 x10^3/uL (4.0-11.0) Red Blood Count 3.22 x10^6/uL (3.50-5.40) Hemoglobin 9.9 g/dL (12.0-15.5) Hematocrit 30.2 % (36.0-47.0) Mean Corpuscular Volume 94 fL (79-100) Mean Corpuscular Hemoglobin 31 pg (25-35) Mean Corpuscular Hemoglobin Concent 33 g/dL (31-37) Red Cell Distribution Width 14.8 % (11.5-14.5) Platelet Count 327 x10^3/uL (140-400) Neutrophils (%) (Auto) 56 % (31-73) Lymphocytes (%) (Auto) 34 % (24-48) Monocytes (%) (Auto) 9 % (0-9) Eosinophils (%) (Auto) 0 % (0-3) Basophils (%) (Auto) 1 % (0-3) Neutrophils # (Auto) 4.1 x10^3/uL (1.8-7.7) Lymphocytes # (Auto) 2.5 x10^3/uL (1.0-4.8) Monocytes # (Auto) 0.6 x10^3/uL (0.0-1.1) Eosinophils # (Auto) 0.0 x10^3/uL (0.0-0.7) Basophils # (Auto) 0.1 x10^3/uL (0.0-0.2) Troponin I Quantitative < 0.017 ng/mL (0.000-0.055) < 0.017 ng/mL (0.000-0.055) Glucose (Fingerstick) 266 mg/dL (70-99) Sodium Level 140 mmol/L (136-145) Potassium Level 3.8 mmol/L (3.5-5.1) Chloride Level 106 mmol/L (98-107) Carbon Dioxide Level 17 mmol/L (21-32) Anion Gap 17 (6-14) Blood Urea Nitrogen 5 mg/dL (7-20) Creatinine 0.7 mg/dL (0.6-1.0) Estimated GFR (Cockcroft-Gault) 113.9 BUN/Creatinine Ratio 7 (6-20) Glucose Level 260 mg/dL (70-99) Calcium Level 8.5 mg/dL (8.5-10.1) Phosphorus Level 1.3 mg/dL (2.6-4.7) Magnesium Level 1.6 mg/dL (1.8-2.4) Total Bilirubin 0.6 mg/dL (0.2-1.0) Aspartate Amino Transf (AST/SGOT) 10 U/L (15-37) Alanine Aminotransferase (ALT/SGPT) 9 U/L (14-59) Alkaline Phosphatase 61 U/L (46-116) Total Protein 7.3 g/dL (6.4-8.2) Albumin 3.0 g/dL (3.4-5.0) Albumin/Globulin Ratio 0.7 (1.0-1.7) Test 06/20/19 20:56 06/20/19 23:35 06/21/19 04:45 06/21/19 07:28 Glucose (Fingerstick) 182 mg/dL (70-99) 323 mg/dL (70-99) Urine Collection Type Unknown Urine Color Yellow Urine Clarity Clear Urine pH 6.0 Urine Specific [place] 1.025 Urine Protein Negative mg/dL (NEG-TRACE) Urine Glucose (UA) >=1000 mg/dL (NEG) Urine Ketones (Stick) >=80 mg/dL (NEG) Urine Blood Negative (NEG) Urine Nitrite Negative (NEG) Urine Bilirubin Negative (NEG) Urine Urobilinogen Dipstick 1.0 mg/dL (0.2 mg/dL) Urine Leukocyte Esterase Negative (NEG) Urine RBC 1-2 /HPF (0-2) Urine WBC 5-10 /HPF (0-4) Urine Squamous Epithelial Cells Few /LPF Urine Bacteria Few /HPF (0-FEW) Urine Mucus Slight /LPF Urine Opiates Screen Neg (NEG) Urine Methadone Screen Neg (NEG) Urine Barbiturates Neg (NEG) Urine Phencyclidine Screen Neg (NEG) Urine Amphetamine/Methamphetamine Neg (NEG) Urine Benzodiazepines Screen Neg (NEG) Urine Cocaine Screen Neg (NEG) Urine Cannabinoids Screen Neg (NEG) Urine Ethyl Alcohol Neg (NEG) White Blood Count 5.9 x10^3/uL (4.0-11.0) Red Blood Count 3.57 x10^6/uL (3.50-5.40) Hemoglobin 11.0 g/dL (12.0-15.5) Hematocrit 34.3 % (36.0-47.0) Mean Corpuscular Volume 96 fL (79-100) Mean Corpuscular Hemoglobin 31 pg (25-35) Mean Corpuscular Hemoglobin Concent 32 g/dL (31-37) Red Cell Distribution Width 15.3 % (11.5-14.5) Platelet Count 300 x10^3/uL (140-400) Neutrophils (%) (Auto) 53 % (31-73) Lymphocytes (%) (Auto) 39 % (24-48) Monocytes (%) (Auto) 6 % (0-9) Eosinophils (%) (Auto) 1 % (0-3) Basophils (%) (Auto) 0 % (0-3) Neutrophils # (Auto) 3.1 x10^3/uL (1.8-7.7) Lymphocytes # (Auto) 2.3 x10^3/uL (1.0-4.8) Monocytes # (Auto) 0.4 x10^3/uL (0.0-1.1) Eosinophils # (Auto) 0.1 x10^3/uL (0.0-0.7) Basophils # (Auto) 0.0 x10^3/uL (0.0-0.2) Sodium Level 136 mmol/L (136-145) Potassium Level 4.6 mmol/L (3.5-5.1) Chloride Level 103 mmol/L (98-107) Carbon Dioxide Level 10 mmol/L (21-32) Anion Gap 23 (6-14) Blood Urea Nitrogen 5 mg/dL (7-20) Creatinine 0.8 mg/dL (0.6-1.0) Estimated GFR (Cockcroft-Gault) 97.7 BUN/Creatinine Ratio 6 (6-20) Glucose Level 360 mg/dL (70-99) Calcium Level 8.8 mg/dL (8.5-10.1) Total Bilirubin 0.6 mg/dL (0.2-1.0) Aspartate Amino Transf (AST/SGOT) 12 U/L (15-37) Alanine Aminotransferase (ALT/SGPT) 8 U/L (14-59) Alkaline Phosphatase 70 U/L (46-116) Total Protein 7.8 g/dL (6.4-8.2) Albumin 3.1 g/dL (3.4-5.0) Albumin/Globulin Ratio 0.7 (1.0-1.7) Triglycerides Level 56 mg/dL (0-150) Cholesterol Level 170 mg/dL (0-200) LDL Cholesterol, Calculated 98 mg/dL (0-100) VLDL Cholesterol, Calculated 11 mg/dL (0-40) Non-HDL Cholesterol Calculated 109 mg/dL (0-129) HDL Cholesterol 61 mg/dL (40-60) Cholesterol/HDL Ratio 2.8 Test 06/21/19 10:50 06/21/19 11:35 06/21/19 11:47 Glucose Level 81 mg/dL (70-99) Phosphorus Level 0.9 mg/dL (2.6-4.7) Magnesium Level 1.9 mg/dL (1.8-2.4) Glucose (Fingerstick) 36 mg/dL (70-99) 210 mg/dL (70-99) --bicarb with downward trend. Allergies: Coded Allergies: No Known Drug Allergies (Unverified , 06/20/19) Medications: Current Medications Medications (Trade) Dose Ordered Sig/Michel Route PRN Reason Start Time Stop Time Status Last Admin Dose Admin Oxycodone/ Acetaminophen (Percocet 5/325) 1 tab PRN Q4HRS PRN PO PAIN 06/20/19 13:45 06/20/19 13:50 Lidocaine (Lidoderm) 1 patch DAILY TD 06/20/19 14:00 06/21/19 08:18 Miscellaneous (Lidoderm Patch Removal) 1 ea QHS MC 06/20/19 21:00 06/20/19 21:00 Lorazepam (Ativan Inj) 1 mg PRN Q4HRS PRN IVP ANXIETY / AGITATION 06/20/19 14:30 06/20/19 16:35 Enoxaparin Sodium (Lovenox 40mg Syringe) 40 mg Q24H SQ 06/20/19 21:00 06/20/19 22:57 Insulin Glargine (Lantus Syringe) 13 unit QHS SQ 06/20/19 21:00 06/20/19 22:57 Insulin Human Lispro (HumaLOG) 8 units TIDWMEALS SQ 06/21/19 08:00 06/21/19 08:14 Magnesium Sulfate 50 ml @ 25 mls/hr 1X ONCE IV 06/20/19 19:00 06/20/19 20:59 DC 06/21/19 01:24 Sodium Bicarbonate (Sodium Bicarbonate) 1,300 mg TID PO 06/21/19 09:00 06/21/19 08:05 Insulin Human Lispro (HumaLOG) 12 units 1X ONCE SQ 06/21/19 07:00 06/21/19 07:01 DC 06/21/19 08:13 Iohexol (Omnipaque 300 Mg/ml) 75 ml 1X ONCE IV 06/21/19 09:00 06/21/19 09:01 DC 06/21/19 09:00 Iohexol (Omnipaque 240 Mg/ml) 30 ml 1X ONCE PO 06/21/19 09:00 06/21/19 09:01 DC 06/21/19 09:00 Ketorolac Tromethamine (Toradol 30mg Vial) 30 mg PRN Q6HRS PRN IVP PAIN 06/21/19 10:30 06/26/19 10:29 06/21/19 10:32 Imaging: Imaging: Possible GB "polyp". PE: GEN: NAD HEENT: Atraumatic, PERRLA LUNGS: CTAB HEART: RRR, no murmurs ABD: NABS, S/ND/NT, no masses EXTREMITY: No edema SKIN: No rashes, no jaundice NEURO/PSYCH: A & O 3 A/P: A/P: IMP: Pain seens resolved; may have been reflux-related as radiated to back. Gastroparesis? Prior GES done in setting of DKA and may not reflect baseline. REC: Treat DKA. Empiric PPI. If issues with diet, consider repeat GES. RONNIE CARLIN MD Jun 21, 2019 12:15
[2019-06-21] MEDS: CYCLOBENZAPRINE 10 MG TABLET. PO PRN ×2 (12:44→21:47)
[2019-06-21] MEDS: PANTOPRAZOLE 40 MG TABLET.DR. PO SCH (12:44)
[2019-06-21] MEDS: HYDROmorphone 2 MG/ML VIAL IVP PRN ×2 (12:46→21:46)
[2019-06-21] MEDS: ONDANSETRON PF 4 MG/2 ML VIAL. IVP PRN ×2 (12:46→21:46)
[2019-06-21 14:23] LABS: ALBUMIN 2.8 g/dL (3.4-5.0); CREATININE 0.7 mg/dL (0.6-1.0); GFR 113.9; PHOSPHORUS 3.1 mg/dL (2.6-4.7); POTASSIUM 3.6 mmol/L (3.5-5.1)
[2019-06-21 15:42] VITALS: BP 129/88
[2019-06-21 19:00] VITALS: BP 117/73
[2019-06-21] MEDS: PATCH REMOVAL. MC SCH (21:53)
[2019-06-21] MEDS: ENOXAPARIN 40 MG/0.4 ML SYRINGE. SQ SCH (21:58)
[2019-06-21] MEDS: INSULIN GLARGINE SYRINGE. SQ SCH (22:01)
[2019-06-21 22:22] LABS: ALBUMIN 2.8 g/dL (3.4-5.0); CALCIUM 8.3 mg/dL (8.5-10.1); CREATININE 0.8 mg/dL (0.6-1.0); GFR 97.7; PHOSPHORUS 2.2 mg/dL (2.6-4.7); POTASSIUM 3.4 mmol/L (3.5-5.1)
[2019-06-21 23:00] VITALS: BP 95/56
[2019-06-22 03:00] VITALS: BP 118/76
[2019-06-22] MEDS: IV RINGERS,LACTATED 1000ML 1,000 ML IV SCH (03:18)
[2019-06-22] MEDS: HYDROmorphone 2 MG/ML VIAL IVP PRN (03:18)
--- NOTE | 2019-06-22 04:00 | NUR ---
Nursing Note Pt had dressing off of left foot. Pt stated that the dressing itched. Educated pt on leaving dressing in place to prevent infection, new foam placed and pt wanted it wrapped with coban. Will monitor.
[2019-06-22 04:58] LABS: ALBUMIN 2.7 g/dL (3.4-5.0); CALCIUM 8.2 mg/dL (8.5-10.1); CREATININE 0.8 mg/dL (0.6-1.0); GFR 97.7; PHOSPHORUS 2.6 mg/dL (2.6-4.7); POTASSIUM 3.2 mmol/L (3.5-5.1)
--- NOTE | 2019-06-22 06:19 | EKG ---
[facility] [address] [place] [address] Test Date: 2019-06-20 Test Time: 06:30:57 Pat Name: TAMMY URBINA Department: Room: Gender: M Apartment Maintenance: : 1980 Requested By: ENMANUEL ALFREDO Order Number: [id number] Reading MD: Measurements Intervals [place] Rate: 114 P: 86 CA: 156 QRS: 45 QRSD: 88 T: -13 QT: 326 QTc: 452 Interpretive Statements SINUS TACHYCARDIA T ABNORMALITY IN INFERIOR LEADS ABNORMAL ECG No previous ECG available for comparison
[2019-06-22 07:00] VITALS: BP 121/88
[2019-06-22] MEDS: LIDOCAINE (700MG/PATCH) PATCH. TD SCH (08:15)
[2019-06-22] MEDS: SODIUM BICARBONATE 650 MG TABLET. PO SCH (08:15)
[2019-06-22] MEDS: PANTOPRAZOLE 40 MG TABLET.DR. PO SCH (08:15)
[2019-06-22] MEDS: INSULIN LISPRO 300 UNITS/3 ML VIAL. SQ SCH ×2 (08:29→08:31)
[2019-06-22] MEDS: oxyCODONE/APAP 5/325 1 TAB TABLET PO PRN (08:38)
--- NOTE | 2019-06-22 08:53 | CARD ---
MR#: [id number] Date of Study: 06/21/2019 Ordering Physician: KI VELÁZQUEZ, Referring Physician: KI VELÁZQUEZ, Tech: Rose Rosado [place] APPROVED REPORT EXAM: Two-dimensional and M-mode echocardiogram with Doppler and color Doppler. Other Information Quality : GoodHR: 93bpm Rhythm : NSR INDICATION Chest Pain 2D DIMENSIONS Left Atrium(2D)2.7 (1.6-4.0cm)IVSd0.8 (0.7-1.1cm) Aortic Root(2D)2.4 (2.0-3.7cm)LVDd4.4 (3.9-5.9cm) LVOT Diameter2.0 (1.8-2.4cm)PWd0.8 (0.7-1.1cm) LA Qqsiuh27 (18-58mL)LVDs3.0 (2.5-4.0cm) FS (%) 32.3 %SV52.3 ml LVEF(%)60.8 (>50%) Aortic Valve AoV Peak Jordon.128.5cm/sAoV VTI24.8cm AO Peak GR.6.6mmHgLVOT Peak Jordon.105.0cm/s AO Mean GR.4mmHgAVA (VMAX)2.63cm2 Mitral Valve MV E Lrkotrfz83.0cm/sMV DECEL QEEO086ks MV A Hubigazg79.5cm/sE/A Ratio1.1 MV A Pxvblgah70io Tricuspid Valve TR P. Nfcdcbjc889he/sRAP [id number] TR Peak Gr.29joXxPHWU34fzAv Pulmonary Vein S1 Iimbaajs13.9cm/sD2 Ygmznrvg20.9cm/s LEFT VENTRICLE The left ventricle is normal size. There is normal left ventricular wall thickness. The left ventricu lar systolic function is normal and the ejection fraction is within normal range. EF 65% There is nor mal LV segmental wall motion. The left ventricular diastolic function and filling is normal for age. No left ventricle thrombus noted on this study. There is no ventricular septal defect visualized. The re is no left ventricular aneurysm. There is no mass noted in the left ventricle. RIGHT VENTRICLE The right ventricle is normal size. There is normal right ventricular wall thickness. The right ventr icular systolic function is normal. ATRIA The left atrium size is normal. The right atrium size is normal. The interatrial septum is intact wit h no evidence for an atrial septal defect or patent foramen ovale as noted on 2-D or Doppler imaging. AORTIC VALVE The aortic valve is normal in structure and function. Doppler and Color Flow revealed no significant aortic regurgitation. There is no significant aortic valvular stenosis. There is no aortic valvular v egetation. MITRAL VALVE The mitral valve is normal in structure and function. There is no evidence of mitral valve prolapse. There is no mitral valve stenosis. Doppler and Color Flow revealed trace to mild mitral regurgitation . TRICUSPID VALVE The tricuspid valve is normal in structure and function. Doppler and Color Flow revealed mild tricusp id regurgitation. There is no tricuspid valve prolapse or vegetation. There is no tricuspid valve marc nosis. PULMONIC VALVE The pulmonary valve is normal in structure and function. Doppler and Color Flow revealed mild pulmoni c valvular regurgitation. There is no pulmonic valvular stenosis. GREAT VESSELS The aortic root is normal in size. Normal pulmonary venous flow (Doppler). The IVC is normal in size and collapses >50% with inspiration. PERICARDIAL EFFUSION There is no pleural effusion. There is no evidence of significant pericardial effusion. Critical Notification Critical Value: No <Conclusion> The left ventricular systolic function is normal and the ejection fraction is within normal range. EF 65% There is normal LV segmental wall motion. Signed by : Ki Velázquez, Electronically Approved : 06/22/2019 08:52:45
--- NOTE | 2019-06-22 09:09 | PDOC ---
PROGRESS NOTES Chief Complaint Chief Complaint A/P: DKA - on insulin GTT overnight, tried to eat Hypophosphatemia - will replace Dm1, poor control Acute back pain - intractable with negative w/u. No pancreatitis Anxiety disorder Right foot wound Concern for possible underlying primary psychiatric disorder History of Present Illness History of Present Illness Ms Huynh is a 38 yo F w/ PMHx type 1 diabetes who p/w complaining of back pain, acute pain to lower back.. Patient complaining of ongoing pain in her back and associated with nausea, she denies chest pain to me, but that was the story in the ER. she has vomited, but that is better, diarrhea x1 almost 12 hours ago when she was sleeping. No change in diet recently. No recent sick contacts. She does have a wound on her right foot, states she scratches at it every night after she takes her lantus. Has been present for 5 days Patient rated her pain 10 over 10. Patient states she was seen at [facility] on Halloween and discharged home after negative evaluation at her pain is not getting better. Patient states she did not check her blood sugar for the last few days but took her medication. Patient is very anxious and tearful, w rithing in pain. In DKA on initial admission with phos level 1.6, Mg 1.3. Still with gap this morning, tried to eat per her boyfriend. 06/21: Gap still not closed this morning. Foot wound noted by night nursing. Still with nausea, but she is asking for food. Blood glucose dropped after 20u Lispro. Will repeat labs, low dose toradol, dilaudid. Flexeril for back spasms, lidoderm patch. Pain significantly better. No nausea, eating a full breakfast. Uncertain what sent her into DKA. Had itching after lantus. prefers levemir. Vitals Vitals Vital Signs Date Time Temp Pulse Resp B/P (MAP) Pulse Ox O2 Delivery O2 Flow Rate FiO2 06/22/19 07:00 98.8 98 16 121/88 (99) 96 Room Air 98.8 06/21/19 15:14 98.0 Physical Exam General: Alert, Cooperative, moderate distress, Other Extremities: No cyanosis Skin: No rashes Labs LABS Laboratory Tests Test 06/21/19 10:50 06/21/19 11:35 06/21/19 11:47 06/21/19 13:55 Glucose Level 81 mg/dL (70-99) 183 mg/dL (70-99) Lactic Acid Level 1.8 mmol/L (0.4-2.0) Phosphorus Level 0.9 mg/dL (2.6-4.7) 3.1 mg/dL (2.6-4.7) Magnesium Level 1.9 mg/dL (1.8-2.4) Glucose (Fingerstick) 36 mg/dL (70-99) 210 mg/dL (70-99) Sodium Level 136 mmol/L (136-145) Potassium Level 3.6 mmol/L (3.5-5.1) Chloride Level 104 mmol/L (98-107) Carbon Dioxide Level 16 mmol/L (21-32) Anion Gap 16 (6-14) Blood Urea Nitrogen 3 mg/dL (7-20) Creatinine 0.7 mg/dL (0.6-1.0) Estimated GFR (Cockcroft-Gault) 113.9 Calcium Level 8.0 mg/dL (8.5-10.1) Albumin 2.8 g/dL (3.4-5.0) Test 06/21/19 16:48 06/21/19 21:00 06/21/19 21:54 06/22/19 04:25 Glucose (Fingerstick) 221 mg/dL (70-99) 131 mg/dL (70-99) Sodium Level 140 mmol/L (136-145) 141 mmol/L (136-145) Potassium Level 3.4 mmol/L (3.5-5.1) 3.2 mmol/L (3.5-5.1) Chloride Level 106 mmol/L (98-107) 107 mmol/L (98-107) Carbon Dioxide Level 18 mmol/L (21-32) 25 mmol/L (21-32) Anion Gap 16 (6-14) 9 (6-14) Blood Urea Nitrogen 2 mg/dL (7-20) 2 mg/dL (7-20) Creatinine 0.8 mg/dL (0.6-1.0) 0.8 mg/dL (0.6-1.0) Estimated GFR (Cockcroft-Gault) 97.7 97.7 Glucose Level 165 mg/dL (70-99) 259 mg/dL (70-99) Calcium Level 8.3 mg/dL (8.5-10.1) 8.2 mg/dL (8.5-10.1) Phosphorus Level 2.2 mg/dL (2.6-4.7) 2.6 mg/dL (2.6-4.7) Albumin 2.8 g/dL (3.4-5.0) 2.7 g/dL (3.4-5.0) Test 06/22/19 07:59 Glucose (Fingerstick) 309 mg/dL (70-99) Assessment and Plan Assessmemt and Plan Problems Medical Problems: (1) Acute back pain Status: Acute (2) Anxiety Status: Acute (3) Anxiety disorder Status: Acute (4) Chest pain Status: Acute (5) DKA (diabetic ketoacidoses) Status: Acute (6) Hypokalemia Status: Acute (7) Nausea and vomiting Status: Acute (8) Non-cardiac chest pain Status: Acute (9) Polyp of gallbladder Status: Acute (10) T1DM (type 1 diabetes mellitus) Status: Chronic Comment Review of Relevant I have reviewed the following items ania (where applicable) has been applied. Labs Laboratory Tests Test 06/20/19 11:06 06/20/19 13:50 06/20/19 16:37 06/20/19 17:14 Glucose (Fingerstick) 232 mg/dL (70-99) 266 mg/dL (70-99) White Blood Count 7.4 x10^3/uL (4.0-11.0) Red Blood Count 3.22 x10^6/uL (3.50-5.40) Hemoglobin 9.9 g/dL (12.0-15.5) Hematocrit 30.2 % (36.0-47.0) Mean Corpuscular Volume 94 fL (79-100) Mean Corpuscular Hemoglobin 31 pg (25-35) Mean Corpuscular Hemoglobin Concent 33 g/dL (31-37) Red Cell Distribution Width 14.8 % (11.5-14.5) Platelet Count 327 x10^3/uL (140-400) Neutrophils (%) (Auto) 56 % (31-73) Lymphocytes (%) (Auto) 34 % (24-48) Monocytes (%) (Auto) 9 % (0-9) Eosinophils (%) (Auto) 0 % (0-3) Basophils (%) (Auto) 1 % (0-3) Neutrophils # (Auto) 4.1 x10^3/uL (1.8-7.7) Lymphocytes # (Auto) 2.5 x10^3/uL (1.0-4.8) Monocytes # (Auto) 0.6 x10^3/uL (0.0-1.1) Eosinophils # (Auto) 0.0 x10^3/uL (0.0-0.7) Basophils # (Auto) 0.1 x10^3/uL (0.0-0.2) Troponin I Quantitative < 0.017 ng/mL (0.000-0.055) Sodium Level 140 mmol/L (136-145) Potassium Level 3.8 mmol/L (3.5-5.1) Chloride Level 106 mmol/L (98-107) Carbon Dioxide Level 17 mmol/L (21-32) Anion Gap 17 (6-14) Blood Urea Nitrogen 5 mg/dL (7-20) Creatinine 0.7 mg/dL (0.6-1.0) Estimated GFR (Cockcroft-Gault) 113.9 BUN/Creatinine Ratio 7 (6-20) Glucose Level 260 mg/dL (70-99) Calcium Level 8.5 mg/dL (8.5-10.1) Phosphorus Level 1.3 mg/dL (2.6-4.7) Magnesium Level 1.6 mg/dL (1.8-2.4) Total Bilirubin 0.6 mg/dL (0.2-1.0) Aspartate Amino Transf (AST/SGOT) 10 U/L (15-37) Alanine Aminotransferase (ALT/SGPT) 9 U/L (14-59) Alkaline Phosphatase 61 U/L (46-116) Total Protein 7.3 g/dL (6.4-8.2) Albumin 3.0 g/dL (3.4-5.0) Albumin/Globulin Ratio 0.7 (1.0-1.7) Test 06/20/19 17:15 06/20/19 20:56 06/20/19 23:35 06/21/19 04:45 Troponin I Quantitative < 0.017 ng/mL (0.000-0.055) Glucose (Fingerstick) 182 mg/dL (70-99) Urine Collection Type Unknown Urine Color Yellow Urine Clarity Clear Urine pH 6.0 Urine Specific [place] 1.025 Urine Protein Negative mg/dL (NEG-TRACE) Urine Glucose (UA) >=1000 mg/dL (NEG) Urine Ketones (Stick) >=80 mg/dL (NEG) Urine Blood Negative (NEG) Urine Nitrite Negative (NEG) Urine Bilirubin Negative (NEG) Urine Urobilinogen Dipstick 1.0 mg/dL (0.2 mg/dL) Urine Leukocyte Esterase Negative (NEG) Urine RBC 1-2 /HPF (0-2) Urine WBC 5-10 /HPF (0-4) Urine Squamous Epithelial Cells Few /LPF Urine Bacteria Few /HPF (0-FEW) Urine Mucus Slight /LPF Urine Opiates Screen Neg (NEG) Urine Methadone Screen Neg (NEG) Urine Barbiturates Neg (NEG) Urine Phencyclidine Screen Neg (NEG) Urine Amphetamine/Methamphetamine Neg (NEG) Urine Benzodiazepines Screen Neg (NEG) Urine Cocaine Screen Neg (NEG) Urine Cannabinoids Screen Neg (NEG) Urine Ethyl Alcohol Neg (NEG) White Blood Count 5.9 x10^3/uL (4.0-11.0) Red Blood Count 3.57 x10^6/uL (3.50-5.40) Hemoglobin 11.0 g/dL (12.0-15.5) Hematocrit 34.3 % (36.0-47.0) Mean Corpuscular Volume 96 fL (79-100) Mean Corpuscular Hemoglobin 31 pg (25-35) Mean Corpuscular Hemoglobin Concent 32 g/dL (31-37) Red Cell Distribution Width 15.3 % (11.5-14.5) Platelet Count 300 x10^3/uL (140-400) Neutrophils (%) (Auto) 53 % (31-73) Lymphocytes (%) (Auto) 39 % (24-48) Monocytes (%) (Auto) 6 % (0-9) Eosinophils (%) (Auto) 1 % (0-3) Basophils (%) (Auto) 0 % (0-3) Neutrophils # (Auto) 3.1 x10^3/uL (1.8-7.7) Lymphocytes # (Auto) 2.3 x10^3/uL (1.0-4.8) Monocytes # (Auto) 0.4 x10^3/uL (0.0-1.1) Eosinophils # (Auto) 0.1 x10^3/uL (0.0-0.7) Basophils # (Auto) 0.0 x10^3/uL (0.0-0.2) Sodium Level 136 mmol/L (136-145) Potassium Level 4.6 mmol/L (3.5-5.1) Chloride Level 103 mmol/L (98-107) Carbon Dioxide Level 10 mmol/L (21-32) Anion Gap 23 (6-14) Blood Urea Nitrogen 5 mg/dL (7-20) Creatinine 0.8 mg/dL (0.6-1.0) Estimated GFR (Cockcroft-Gault) 97.7 BUN/Creatinine Ratio 6 (6-20) Glucose Level 360 mg/dL (70-99) Calcium Level 8.8 mg/dL (8.5-10.1) Total Bilirubin 0.6 mg/dL (0.2-1.0) Aspartate Amino Transf (AST/SGOT) 12 U/L (15-37) Alanine Aminotransferase (ALT/SGPT) 8 U/L (14-59) Alkaline Phosphatase 70 U/L (46-116) Total Protein 7.8 g/dL (6.4-8.2) Albumin 3.1 g/dL (3.4-5.0) Albumin/Globulin Ratio 0.7 (1.0-1.7) Triglycerides Level 56 mg/dL (0-150) Cholesterol Level 170 mg/dL (0-200) LDL Cholesterol, Calculated 98 mg/dL (0-100) VLDL Cholesterol, Calculated 11 mg/dL (0-40) Non-HDL Cholesterol Calculated 109 mg/dL (0-129) HDL Cholesterol 61 mg/dL (40-60) Cholesterol/HDL Ratio 2.8 Test 06/21/19 07:28 06/21/19 10:50 06/21/19 11:35 06/21/19 11:47 Glucose (Fingerstick) 323 mg/dL (70-99) 36 mg/dL (70-99) 210 mg/dL (70-99) Glucose Level 81 mg/dL (70-99) Lactic Acid Level 1.8 mmol/L (0.4-2.0) Phosphorus Level 0.9 mg/dL (2.6-4.7) Magnesium Level 1.9 mg/dL (1.8-2.4) Test 06/21/19 13:55 06/21/19 16:48 06/21/19 21:00 06/21/19 21:54 Sodium Level 136 mmol/L (136-145) 140 mmol/L (136-145) Potassium Level 3.6 mmol/L (3.5-5.1) 3.4 mmol/L (3.5-5.1) Chloride Level 104 mmol/L (98-107) 106 mmol/L (98-107) Carbon Dioxide Level 16 mmol/L (21-32) 18 mmol/L (21-32) Anion Gap 16 (6-14) 16 (6-14) Blood Urea Nitrogen 3 mg/dL (7-20) 2 mg/dL (7-20) Creatinine 0.7 mg/dL (0.6-1.0) 0.8 mg/dL (0.6-1.0) Estimated GFR (Cockcroft-Gault) 113.9 97.7 Glucose Level 183 mg/dL (70-99) 165 mg/dL (70-99) Calcium Level 8.0 mg/dL (8.5-10.1) 8.3 mg/dL (8.5-10.1) Phosphorus Level 3.1 mg/dL (2.6-4.7) 2.2 mg/dL (2.6-4.7) Albumin 2.8 g/dL (3.4-5.0) 2.8 g/dL (3.4-5.0) Glucose (Fingerstick) 221 mg/dL (70-99) 131 mg/dL (70-99) Test 06/22/19 04:25 06/22/19 07:59 Sodium Level 141 mmol/L (136-145) Potassium Level 3.2 mmol/L (3.5-5.1) Chloride Level 107 mmol/L (98-107) Carbon Dioxide Level 25 mmol/L (21-32) Anion Gap 9 (6-14) Blood Urea Nitrogen 2 mg/dL (7-20) Creatinine 0.8 mg/dL (0.6-1.0) Estimated GFR (Cockcroft-Gault) 97.7 Glucose Level 259 mg/dL (70-99) Calcium Level 8.2 mg/dL (8.5-10.1) Phosphorus Level 2.6 mg/dL (2.6-4.7) Albumin 2.7 g/dL (3.4-5.0) Glucose (Fingerstick) 309 mg/dL (70-99) Laboratory Tests Test 06/21/19 10:50 06/21/19 11:35 06/21/19 11:47 06/21/19 13:55 Glucose Level 81 mg/dL (70-99) 183 mg/dL (70-99) Lactic Acid Level 1.8 mmol/L (0.4-2.0) Phosphorus Level 0.9 mg/dL (2.6-4.7) 3.1 mg/dL (2.6-4.7) Magnesium Level 1.9 mg/dL (1.8-2.4) Glucose (Fingerstick) 36 mg/dL (70-99) 210 mg/dL (70-99) Sodium Level 136 mmol/L (136-145) Potassium Level 3.6 mmol/L (3.5-5.1) Chloride Level 104 mmol/L (98-107) Carbon Dioxide Level 16 mmol/L (21-32) Anion Gap 16 (6-14) Blood Urea Nitrogen 3 mg/dL (7-20) Creatinine 0.7 mg/dL (0.6-1.0) Estimated GFR (Cockcroft-Gault) 113.9 Calcium Level 8.0 mg/dL (8.5-10.1) Albumin 2.8 g/dL (3.4-5.0) Test 06/21/19 16:48 06/21/19 21:00 06/21/19 21:54 06/22/19 04:25 Glucose (Fingerstick) 221 mg/dL (70-99) 131 mg/dL (70-99) Sodium Level 140 mmol/L (136-145) 141 mmol/L (136-145) Potassium Level 3.4 mmol/L (3.5-5.1) 3.2 mmol/L (3.5-5.1) Chloride Level 106 mmol/L (98-107) 107 mmol/L (98-107) Carbon Dioxide Level 18 mmol/L (21-32) 25 mmol/L (21-32) Anion Gap 16 (6-14) 9 (6-14) Blood Urea Nitrogen 2 mg/dL (7-20) 2 mg/dL (7-20) Creatinine 0.8 mg/dL (0.6-1.0) 0.8 mg/dL (0.6-1.0) Estimated GFR (Cockcroft-Gault) 97.7 97.7 Glucose Level 165 mg/dL (70-99) 259 mg/dL (70-99) Calcium Level 8.3 mg/dL (8.5-10.1) 8.2 mg/dL (8.5-10.1) Phosphorus Level 2.2 mg/dL (2.6-4.7) 2.6 mg/dL (2.6-4.7) Albumin 2.8 g/dL (3.4-5.0) 2.7 g/dL (3.4-5.0) Test 06/22/19 07:59 Glucose (Fingerstick) 309 mg/dL (70-99) Medications Current Medications Aspirin (Children'S Aspirin) 324 mg 1X ONCE PO Last administered on 06/20/19 07:18; Start 06/20/19 at 07:00; Stop 06/20/19 at 07:01; Status DC Sodium Chloride 1,000 ml @ 1,000 mls/hr Q1H IV Last administered on 06/20/19at 07:17; Start 06/20/19 at 06:45; Stop 06/20/19 at 07:44; Status DC Ondansetron HCl (Zofran) 4 mg 1X ONCE IV Last administered on 06/20/19at 07:18; Start 06/20/19 at 07:00; Stop 06/20/19 at 07:01; Status DC Famotidine (Pepcid Vial) 20 mg 1X ONCE IVP Last administered on 06/20/19at 07:18; Start 06/20/19 at 07:00; Stop 06/20/19 at 07:01; Status DC Lorazepam (Ativan Inj) 1 mg 1X ONCE IVP Last administered on 06/20/19at 07:18; Start 06/20/19 at 07:30; Stop 06/20/19 at 07:31; Status DC Sodium Chloride 1,000 ml @ 1,000 mls/hr 1X ONCE IV Last administered on 08/20/18 09:09; Start 06/20/19 at 09:00; Stop 06/20/19 at 09:59; Status DC Potassium Chloride (Klor-Con) 40 meq 1X ONCE PO Last administered on 06/20/19 09:16; Start 06/20/19 at 09:30; Stop 06/20/19 at 09:31; Status DC Insulin Human Regular 150 unit/ Sodium Chloride 151.5 ml @ 0 mls/hr CONT PRN PRN IV VOMITING; Start 06/20/19 at 10:00; Stop 06/21/19 at 13:00; Status DC Potassium Chloride/Water 100 ml @ 100 mls/hr PRN Q1HR PRN IV PER PROTOCOL; Start 06/20/19 at 10:00 Potassium Chloride/Water 100 ml @ 100 mls/hr PRN Q1HR PRN IV PER PROTOCOL; Start 06/20/19 at 10:00 Insulin Human Lispro (HumaLOG) 0-5 UNITS TIDWMEALS SQ Last administered on 06/22/19at 08:29; Start 06/20/19 at 12:00 Dextrose (Dextrose 50%-Water Syringe) 12.5 gm PRN Q15MIN PRN IV SEE COMMENTS Last administered on 06/21/19at 11:40; Start 06/20/19 at 11:15 Insulin Glargine (Lantus Syringe) 10 unit QHS SQ ; Start 06/20/19 at 21:00; Stop 06/20/19 at 18:21; Status DC Insulin Human Lispro (HumaLOG) 5 units TIDWMEALS SQ Last administered on 06/20/19at 16:39; Start 06/20/19 at 12:00; Stop 06/20/19 at 18:21; Status DC Ringer's Solution 1,000 ml @ 100 mls/hr Q10H IV Last administered on 06/22/19at 03:18; Start 06/20/19 at 12:00 Potassium Chloride/Water 100 ml @ 100 mls/hr Q1H IV Last administered on 06/20/19at 22:56; Start 06/20/19 at 12:00; Stop 06/20/19 at 19:59; Status DC Oxycodone/ Acetaminophen (Percocet 5/325) 1 tab PRN Q4HRS PRN PO PAIN Last administered on 06/22/19 08:38; Start 06/20/19 at 13:45 Lidocaine (Lidoderm) 1 patch DAILY TD Last administered on 06/22/19 08:15; Start 06/20/19 at 14:00 Miscellaneous (Lidoderm Patch Removal) 1 ea QHS MC Last administered on 06/21/19 21:53; Start 06/20/19 at 21:00 Lorazepam (Ativan Inj) 1 mg PRN Q4HRS PRN IVP ANXIETY / AGITATION Last adminis tered on 06/20/19 16:35; Start 06/20/19 at 14:30 Haloperidol Lactate (Haldol Inj) 5 mg PRN Q6HRS PRN IVP AGITATION; Start 06/20/19 at 14:45 Enoxaparin Sodium (Lovenox Per Pharmacy Prophylaxis Dosing) 1 each PRN DAILY PRN MC SEE COMMENTS; Start 06/20/19 at 16:45 Enoxaparin Sodium (Lovenox 40mg Syringe) 40 mg Q24H SQ Last administered on 06/21/19 21:58; Start 06/20/19 at 21:00 Ondansetron HCl (Zofran) 8 mg PRN Q8HRS PRN IVP NAUSEA/VOMITING Last administered on 06/21/19 21:46; Start 06/20/19 at 18:30 Ondansetron HCl (Zofran) 8 mg PRN Q8HRS PRN IVP NAUSEA/VOMITING; Start 06/20/19 at 18:30; Status UNV Insulin Glargine (Lantus Syringe) 13 unit QHS SQ Last administered on 06/21/19 22:01; Start 06/20/19 at 21:00 Insulin Human Lispro (HumaLOG) 8 units TIDWMEALS SQ Last administered on 06/22/19 08:31; Start 06/21/19 at 08:00 Magnesium Sulfate 50 ml @ 25 mls/hr 1X ONCE IV Last administered on 06/21/19 01:24; Start 06/20/19 at 19:00; Stop 06/20/19 at 20:59; Status DC Iohexol (Omnipaque 240 Mg/ml) 30 ml 1X ONCE PO ; Start 06/20/19 at 19:15; Stop 06/20/19 at 19:16; Status DC Iohexol (Omnipaque 300 Mg/ml) 75 ml 1X ONCE IV ; Start 06/20/19 at 19:15; Stop 06/20/19 at 19:16; Status DC Info (CONTRAST GIVEN -- Rx MONITORING) 1 each PRN DAILY PRN MC SEE COMMENTS; Start 06/20/19 at 19:30; Stop 06/21/19 at 12:12; Status DC Sodium Bicarbonate (Sodium Bicarbonate) 1,300 mg TID PO Last administered on 06/22/19at 08:15; Start 06/21/19 at 09:00 Insulin Human Lispro (HumaLOG) 12 units 1X ONCE SQ Last administered on 06/21/19at 08:13; Start 06/21/19 at 07:00; Stop 06/21/19 at 07:01; Status DC Iohexol (Omnipaque 300 Mg/ml) 75 ml 1X ONCE IV Last administered on 06/21/19at 09:00; Start 06/21/19 at 09:00; Stop 06/21/19 at 09:01; Status DC Iohexol (Omnipaque 240 Mg/ml) 30 ml 1X ONCE PO Last administered on 06/21/19at 09:00; Start 06/21/19 at 09:00; Stop 06/21/19 at 09:01; Status DC Info (CONTRAST GIVEN -- Rx MONITORING) 1 each PRN DAILY PRN MC SEE COMMENTS; Start 06/21/19 at 08:45; Stop 06/23/19 at 08:44 Ketorolac Tromethamine (Toradol 30mg Vial) 30 mg PRN Q6HRS PRN IVP INFLAMMATION Last administered on 06/21/19at 10:32; Start 06/21/19 at 10:30; Stop 06/26/19 at 10:29 Sodium Phosphate 20 mmol/Dextrose 256.6667 ml @ 64.167 m... 1X ONCE IV Last administered on 06/21/19at 12:45; Start 06/21/19 at 12:00; Stop 06/21/19 at 15:59; Status DC Hydromorphone HCl (Dilaudid) 0.4 mg PRN Q4HRS PRN IVP PAIN Last administered on 06/22/19at 03:18; Start 06/21/19 at 12:15 Pantoprazole Sodium (Protonix) 40 mg DAILYAC PO Last administered on 06/22/19at 08:15; Start 06/21/19 at 13:00 Cyclobenzaprine HCl (Flexeril) 10 mg PRN Q6HRS PRN PO MUSCLE SPASMS Last administered on 06/21/19at 21:47; Start 06/21/19 at 12:30 Vitals/I & O Vital Sign - Last 24 Hours 06/21/19 06/21/19 06/21/19 06/21/19 11:23 12:46 15:14 15:42 Temp 97.5 97.4 97.5 97.4 Pulse 99 100 Resp 18 18 B/P (MAP) 119/73 (88) 129/88 (102) Pulse Ox 96 96 96 99 O2 Delivery Room Air Room Air Room Air Room Air O2 Flow Rate 98.0 98.0 06/21/19 06/21/19 06/21/19 06/21/19 19:00 20:00 21:46 22:16 Temp 98.4 98.4 Pulse 112 Resp 16 20 18 B/P (MAP) 117/73 (88) Pulse Ox 98 O2 Delivery Room Air Room Air Room Air Room Air 06/21/19 06/22/19 06/22/19 06/22/19 23:00 03:00 03:18 03:48 Temp 98.4 98.5 98.4 98.5 Pulse 109 94 Resp 16 16 20 18 B/P (MAP) 95/56 (69) 118/76 (90) Pulse Ox 97 95 O2 Delivery Room Air Room Air Room Air Room Air 06/22/19 07:00 Temp 98.8 98.8 Pulse 98 Resp 16 B/P (MAP) 121/88 (99) Pulse Ox 96 O2 Delivery Room Air Intake and Output 06/21/19 06/21/19 06/22/19 15:00 23:00 07:00 Intake Total 580 ml 240 ml Output Total 1200 ml 1100 ml 200 ml Balance -1200 ml -520 ml 40 ml PERRY MONTANO MD Jun 22, 2019 09:09
[2019-06-22] MEDS ORDERED: DEXTROSE 50% 25 GM / 50ML DISP.SYRIN. IV PRN (09:15)
[2019-06-22] MEDS ORDERED: INSULIN LISPRO 300 UNITS/3 ML VIAL. SQ SCH ×2 (09:30→11:30)
--- NOTE | 2019-06-22 09:30 | NUR ---
wound care patient seen per wound care consult. see wound assessment. patient has a left foot DFU, patient stated is from itching. the wound was cleaned and redressed with Medihoney alginate with a foam dressing, recommendations of changing every 2-3 days. patient educated on the dressing, as patient is planning to discharge today. the patient stated she is following up at [place]. notified PHAN Gutierrez about the POC, wound care care will continue to f/u.
[2019-06-22] MEDS: POTASSIUM CHLORIDE 10MEQ 100 ML IV SCH ×2 (10:00→11:00)
[2019-06-22] MEDS ORDERED: POTASSIUM CHLORIDE 20 MEQ TABLET.ER. PO ONE (10:00)
[2019-06-22] MEDS ORDERED: EMPA10TA PO (10:24)
[2019-06-22] MEDS ORDERED: PANT40TA77 PO (10:24)
[2019-06-22] MEDS ORDERED: INSU100I27 SQ (10:24)
--- NOTE | 2019-06-22 10:27 | PDOC3 ---
Discharge Summary Visit Information Date of Admission: Jun 20, 2019 Date of Discharge: Jun 22, 2019 Admitting Diagnosis: DKA Final Diagnosis Problems Medical Problems: (1) Acute back pain Status: Acute (2) Anxiety Status: Acute (3) Anxiety disorder Status: Acute (4) Chest pain Status: Acute (5) DKA (diabetic ketoacidoses) Status: Acute (6) Hypokalemia Status: Acute (7) Nausea and vomiting Status: Acute (8) Non-cardiac chest pain Status: Acute (9) Polyp of gallbladder Status: Acute (10) T1DM (type 1 diabetes mellitus) Status: Chronic Brief Hospital Course Allergies Allergies Coded Allergies Type Severity Reaction Last Updated Verified No Known Drug Allergies 06/20/19 No Vital Signs Vital Signs Date Time Temp Pulse Resp B/P (MAP) Pulse Ox O2 Delivery O2 Flow Rate FiO2 06/22/19 07:00 98.8 98 16 121/88 (99) 96 Room Air 98.8 06/21/19 15:14 98.0 Lab Results Laboratory Tests Test 06/20/19 11:06 06/20/19 13:50 06/20/19 16:37 06/20/19 17:14 Glucose (Fingerstick) 232 mg/dL (70-99) 266 mg/dL (70-99) White Blood Count 7.4 x10^3/uL (4.0-11.0) Red Blood Count 3.22 x10^6/uL (3.50-5.40) Hemoglobin 9.9 g/dL (12.0-15.5) Hematocrit 30.2 % (36.0-47.0) Mean Corpuscular Volume 94 fL (79-100) Mean Corpuscular Hemoglobin 31 pg (25-35) Mean Corpuscular Hemoglobin Concent 33 g/dL (31-37) Red Cell Distribution Width 14.8 % (11.5-14.5) Platelet Count 327 x10^3/uL (140-400) Neutrophils (%) (Auto) 56 % (31-73) Lymphocytes (%) (Auto) 34 % (24-48) Monocytes (%) (Auto) 9 % (0-9) Eosinophils (%) (Auto) 0 % (0-3) Basophils (%) (Auto) 1 % (0-3) Neutrophils # (Auto) 4.1 x10^3/uL (1.8-7.7) Lymphocytes # (Auto) 2.5 x10^3/uL (1.0-4.8) Monocytes # (Auto) 0.6 x10^3/uL (0.0-1.1) Eosinophils # (Auto) 0.0 x10^3/uL (0.0-0.7) Basophils # (Auto) 0.1 x10^3/uL (0.0-0.2) Troponin I Quantitative < 0.017 ng/mL (0.000-0.055) Sodium Level 140 mmol/L (136-145) Potassium Level 3.8 mmol/L (3.5-5.1) Chloride Level 106 mmol/L (98-107) Carbon Dioxide Level 17 mmol/L (21-32) Anion Gap 17 (6-14) Blood Urea Nitrogen 5 mg/dL (7-20) Creatinine 0.7 mg/dL (0.6-1.0) Estimated GFR (Cockcroft-Gault) 113.9 BUN/Creatinine Ratio 7 (6-20) Glucose Level 260 mg/dL (70-99) Calcium Level 8.5 mg/dL (8.5-10.1) Phosphorus Level 1.3 mg/dL (2.6-4.7) Magnesium Level 1.6 mg/dL (1.8-2.4) Total Bilirubin 0.6 mg/dL (0.2-1.0) Aspartate Amino Transf (AST/SGOT) 10 U/L (15-37) Alanine Aminotransferase (ALT/SGPT) 9 U/L (14-59) Alkaline Phosphatase 61 U/L (46-116) Total Protein 7.3 g/dL (6.4-8.2) Albumin 3.0 g/dL (3.4-5.0) Albumin/Globulin Ratio 0.7 (1.0-1.7) Test 06/20/19 17:15 06/20/19 20:56 06/20/19 23:35 06/21/19 04:45 Troponin I Quantitative < 0.017 ng/mL (0.000-0.055) Glucose (Fingerstick) 182 mg/dL (70-99) Urine Collection Type Unknown Urine Color Yellow Urine Clarity Clear Urine pH 6.0 Urine Specific [place] 1.025 Urine Protein Negative mg/dL (NEG-TRACE) Urine Glucose (UA) >=1000 mg/dL (NEG) Urine Ketones (Stick) >=80 mg/dL (NEG) Urine Blood Negative (NEG) Urine Nitrite Negative (NEG) Urine Bilirubin Negative (NEG) Urine Urobilinogen Dipstick 1.0 mg/dL (0.2 mg/dL) Urine Leukocyte Esterase Negative (NEG) Urine RBC 1-2 /HPF (0-2) Urine WBC 5-10 /HPF (0-4) Urine Squamous Epithelial Cells Few /LPF Urine Bacteria Few /HPF (0-FEW) Urine Mucus Slight /LPF Urine Opiates Screen Neg (NEG) Urine Methadone Screen Neg (NEG) Urine Barbiturates Neg (NEG) Urine Phencyclidine Screen Neg (NEG) Urine Amphetamine/Methamphetamine Neg (NEG) Urine Benzodiazepines Screen Neg (NEG) Urine Cocaine Screen Neg (NEG) Urine Cannabinoids Screen Neg (NEG) Urine Ethyl Alcohol Neg (NEG) White Blood Count 5.9 x10^3/uL (4.0-11.0) Red Blood Count 3.57 x10^6/uL (3.50-5.40) Hemoglobin 11.0 g/dL (12.0-15.5) Hematocrit 34.3 % (36.0-47.0) Mean Corpuscular Volume 96 fL (79-100) Mean Corpuscular Hemoglobin 31 pg (25-35) Mean Corpuscular Hemoglobin Concent 32 g/dL (31-37) Red Cell Distribution Width 15.3 % (11.5-14.5) Platelet Count 300 x10^3/uL (140-400) Neutrophils (%) (Auto) 53 % (31-73) Lymphocytes (%) (Auto) 39 % (24-48) Monocytes (%) (Auto) 6 % (0-9) Eosinophils (%) (Auto) 1 % (0-3) Basophils (%) (Auto) 0 % (0-3) Neutrophils # (Auto) 3.1 x10^3/uL (1.8-7.7) Lymphocytes # (Auto) 2.3 x10^3/uL (1.0-4.8) Monocytes # (Auto) 0.4 x10^3/uL (0.0-1.1) Eosinophils # (Auto) 0.1 x10^3/uL (0.0-0.7) Basophils # (Auto) 0.0 x10^3/uL (0.0-0.2) Sodium Level 136 mmol/L (136-145) Potassium Level 4.6 mmol/L (3.5-5.1) Chloride Level 103 mmol/L (98-107) Carbon Dioxide Level 10 mmol/L (21-32) Anion Gap 23 (6-14) Blood Urea Nitrogen 5 mg/dL (7-20) Creatinine 0.8 mg/dL (0.6-1.0) Estimated GFR (Cockcroft-Gault) 97.7 BUN/Creatinine Ratio 6 (6-20) Glucose Level 360 mg/dL (70-99) Calcium Level 8.8 mg/dL (8.5-10.1) Total Bilirubin 0.6 mg/dL (0.2-1.0) Aspartate Amino Transf (AST/SGOT) 12 U/L (15-37) Alanine Aminotransferase (ALT/SGPT) 8 U/L (14-59) Alkaline Phosphatase 70 U/L (46-116) Total Protein 7.8 g/dL (6.4-8.2) Albumin 3.1 g/dL (3.4-5.0) Albumin/Globulin Ratio 0.7 (1.0-1.7) Triglycerides Level 56 mg/dL (0-150) Cholesterol Level 170 mg/dL (0-200) LDL Cholesterol, Calculated 98 mg/dL (0-100) VLDL Cholesterol, Calculated 11 mg/dL (0-40) Non-HDL Cholesterol Calculated 109 mg/dL (0-129) HDL Cholesterol 61 mg/dL (40-60) Cholesterol/HDL Ratio 2.8 Test 06/21/19 07:28 06/21/19 10:50 06/21/19 11:35 06/21/19 11:47 Glucose (Fingerstick) 323 mg/dL (70-99) 36 mg/dL (70-99) 210 mg/dL (70-99) Glucose Level 81 mg/dL (70-99) Lactic Acid Level 1.8 mmol/L (0.4-2.0) Phosphorus Level 0.9 mg/dL (2.6-4.7) Magnesium Level 1.9 mg/dL (1.8-2.4) Test 06/21/19 13:55 06/21/19 16:48 06/21/19 21:00 06/21/19 21:54 Sodium Level 136 mmol/L (136-145) 140 mmol/L (136-145) Potassium Level 3.6 mmol/L (3.5-5.1) 3.4 mmol/L (3.5-5.1) Chloride Level 104 mmol/L (98-107) 106 mmol/L (98-107) Carbon Dioxide Level 16 mmol/L (21-32) 18 mmol/L (21-32) Anion Gap 16 (6-14) 16 (6-14) Blood Urea Nitrogen 3 mg/dL (7-20) 2 mg/dL (7-20) Creatinine 0.7 mg/dL (0.6-1.0) 0.8 mg/dL (0.6-1.0) Estimated GFR (Cockcroft-Gault) 113.9 97.7 Glucose Level 183 mg/dL (70-99) 165 mg/dL (70-99) Calcium Level 8.0 mg/dL (8.5-10.1) 8.3 mg/dL (8.5-10.1) Phosphorus Level 3.1 mg/dL (2.6-4.7) 2.2 mg/dL (2.6-4.7) Albumin 2.8 g/dL (3.4-5.0) 2.8 g/dL (3.4-5.0) Glucose (Fingerstick) 221 mg/dL (70-99) 131 mg/dL (70-99) Test 06/22/19 04:25 06/22/19 07:59 Sodium Level 141 mmol/L (136-145) Potassium Level 3.2 mmol/L (3.5-5.1) Chloride Level 107 mmol/L (98-107) Carbon Dioxide Level 25 mmol/L (21-32) Anion Gap 9 (6-14) Blood Urea Nitrogen 2 mg/dL (7-20) Creatinine 0.8 mg/dL (0.6-1.0) Estimated GFR (Cockcroft-Gault) 97.7 Glucose Level 259 mg/dL (70-99) Calcium Level 8.2 mg/dL (8.5-10.1) Phosphorus Level 2.6 mg/dL (2.6-4.7) Albumin 2.7 g/dL (3.4-5.0) Glucose (Fingerstick) 309 mg/dL (70-99) Laboratory Tests Test 06/21/19 10:50 06/21/19 11:35 06/21/19 11:47 06/21/19 13:55 Glucose Level 81 mg/dL (70-99) 183 mg/dL (70-99) Lactic Acid Level 1.8 mmol/L (0.4-2.0) Phosphorus Level 0.9 mg/dL (2.6-4.7) 3.1 mg/dL (2.6-4.7) Magnesium Level 1.9 mg/dL (1.8-2.4) Glucose (Fingerstick) 36 mg/dL (70-99) 210 mg/dL (70-99) Sodium Level 136 mmol/L (136-145) Potassium Level 3.6 mmol/L (3.5-5.1) Chloride Level 104 mmol/L (98-107) Carbon Dioxide Level 16 mmol/L (21-32) Anion Gap 16 (6-14) Blood Urea Nitrogen 3 mg/dL (7-20) Creatinine 0.7 mg/dL (0.6-1.0) Estimated GFR (Cockcroft-Gault) 113.9 Calcium Level 8.0 mg/dL (8.5-10.1) Albumin 2.8 g/dL (3.4-5.0) Test 06/21/19 16:48 06/21/19 21:00 06/21/19 21:54 06/22/19 04:25 Glucose (Fingerstick) 221 mg/dL (70-99) 131 mg/dL (70-99) Sodium Level 140 mmol/L (136-145) 141 mmol/L (136-145) Potassium Level 3.4 mmol/L (3.5-5.1) 3.2 mmol/L (3.5-5.1) Chloride Level 106 mmol/L (98-107) 107 mmol/L (98-107) Carbon Dioxide Level 18 mmol/L (21-32) 25 mmol/L (21-32) Anion Gap 16 (6-14) 9 (6-14) Blood Urea Nitrogen 2 mg/dL (7-20) 2 mg/dL (7-20) Creatinine 0.8 mg/dL (0.6-1.0) 0.8 mg/dL (0.6-1.0) Estimated GFR (Cockcroft-Gault) 97.7 97.7 Glucose Level 165 mg/dL (70-99) 259 mg/dL (70-99) Calcium Level 8.3 mg/dL (8.5-10.1) 8.2 mg/dL (8.5-10.1) Phosphorus Level 2.2 mg/dL (2.6-4.7) 2.6 mg/dL (2.6-4.7) Albumin 2.8 g/dL (3.4-5.0) 2.7 g/dL (3.4-5.0) Test 06/22/19 07:59 Glucose (Fingerstick) 309 mg/dL (70-99) Brief Hospital Course Ms Huynh is a 38 yo F w/ PMHx type 1 diabetes who p/w complaining of back pain, acute pain to lower back.. Patient complaining of ongoing pain in her back and associated with nausea, she denies chest pain to me, but that was the story in the ER. she has vomited, but that is better, diarrhea x1 almost 12 hours ago when she was sleeping. No change in diet recently. No recent sick contacts. She does have a wound on her right foot, states she scratches at it every night after she takes her lantus. Has been present for 5 days Patient rated her pain 10 over 10. Patient states she was seen at [facility] and discharged home after negative evaluation at her pain is not getting better. Patient states she did not check her blood sugar for the last few days but took her medication. Patient is very anxious and tearful, writhing in pain. In DKA on initial admission with phos level 1.6, Mg 1.3. Still with gap this morning, tried to eat per her boyfriend. 06/21: Gap still not closed this morning. Foot wound noted by night nursing. Still with nausea, but she is asking for food. Blood glucose dropped after 20u Lispro. Will repeat labs, low dose toradol, dilaudid. Flexeril for back spasms, lidoderm patch. Pain significantly better. No nausea, eating a full breakfast. Uncertain what sent her into DKA. Had itching after lantus. prefers levemir. Seen by wound care will f/u with us as her podiatry appt is not until 08/10/19 at [place], otherwise she will get her f/u at [place]. A/P: DKA - resolved with insulin GTT over 48 hours Hypophosphatemia - will replace Dm1, poor control Acute back pain - intractable with negative w/u. No pancreatitis Anxiety disorder Right foot wound Left hand swelling - infiltrated IV, elevate, warm compress Greater than 30 minutes spent on d/c Discharge Information Condition at Discharge: Improved Follow Up: Weeks (1) Disposition/Orders: D/C to Home Scheduled Empagliflozin (Jardiance) 10 Mg Tablet, 10 MG PO DAILY for DM for 30 Days, #30 Prescribed by: PERRY MONTANO MD on 06/22/19 1024 Insulin Detemir (Levemir Flextouch) 100 Unit/1 Ml Insuln.pen, 13 UNIT SQ QHS for DM1 for 30 Days, #2 Ref 5 Prescribed by: PERRY MONTANO MD on 06/22/19 1024 Insulin Lispro (Humalog) 100 Unit/1 Ml Vial, 8 UNIT SQ TIDAC for high bloodsugar, (Reported) Entered as Reported by: NOEL BONNER on 06/22/19 1313 Pantoprazole Sodium (Pantoprazole Sodium ) 40 Mg Tablet.dr, 40 MG PO DAILYAC for GERD for 30 Days, #30 Prescribed by: PERRY MONTANO MD on 06/22/19 1024 PERRY MONTANO MD Jun 22, 2019 10:27
--- NOTE | 2019-06-22 10:30 | CONS ---
DATE OF CONSULTATION: 06/22/2019 ATTENDING PHYSICIAN: Betsy Haider MD The patient was seen at the request of Dr. Haider for rehab evaluation. HISTORY OF PRESENT ILLNESS: This is a 38-year-old female with known diabetes mellitus with associated chronic lower back pain without any radiation to the extremities. She was admitted through the Emergency Room on 06/20/2019 with back pain with associated nausea. The patient apparently had one vomitus, had diarrhea one time. The patient was seen at [facility] about 2 days ago, was discharged to home after negative evaluation. The patient, since admission, being treated for anxiety, chest pain, diabetic ketoacidosis, hypokalemia, and polyp of gallbladder. She had CT scan of the abdomen, which revealed 1-cm nodular density in the right lower breast. A small mass is not excluded. This could be further assessed with outpatient mammography or sonography. The patient had chest x-ray done, which failed to reveal any acute problem and she had ultrasound of the abdomen, which revealed 3-mm cholesterol polyp of the gallbladder. On physical examination today revealed young female. The patient is alert, oriented to time, place, person and circumstance and follows commands appropriately. She had painful limited movements of lower thoracic and lumbar spine with moderate degree of paraspinal muscle spasm and tenderness to palpation over lower thoracic and lumbar paraspinal muscles and adjoining interspinous ligamentous area and sacroiliac joint area. She had mild degree of scoliotic deformity of lower thoracic and lumbar spine with convexity to the left side. Straight leg raising test is negative bilaterally. She had 5/5 grade muscle strength in her extremities. She had some edema of her left hand and forearm secondary to IV infiltration. The patient had equal perception of touch and pinprick sensation bilaterally. Deep tendon reflexes are decreased in the upper extremities, absent at both knees and ankles. She is independent with bed mobility and transfers and up walking without any loss of balance. ASSESSMENT: 1. Young female with chronic lower back pain, most probably from degenerative joint disease and degenerative disk disease of lower thoracic and lumbar vertebrae without any clinical evidence of ongoing thoracic or lumbar radiculopathy. 2. Diabetes mellitus with peripheral neuropathy. 3. Recent hospitalization for diabetic ketoacidosis and hypokalemia. RECOMMENDATIONS: I have reviewed with her a home program of physical modalities, triggerpoint massage and relax stretching exercise to her back muscles. I have instructed her on proper body mechanics and to consider a course of outpatient physical therapy or trigger point injections or lumbar corset if the pain persists. She apparently had been taking ibuprofen 800 mg on as-needed basis and also taking Tylenol for pain on as-needed basis. Dr. Haider, I appreciate asking me to participate in the care of this interesting patient. I will be glad to see her for followup on as-needed basis. MARCELLA HOPE MD DR: WENDI/elyssa JOB#: [id number] / [id number]
--- NOTE | 2019-06-22 12:17 | PDOC ---
G I PROGRESS NOTE Reason for Follow-up N/V Subjective Tolerating PO today Physical Exam Lungs clear CV S1 S2 ABD +BS, soft,nontender Review of Relevant I have reviewed the following items ania (where applicable) has been applied. Labs Laboratory Tests Test 06/20/19 13:50 06/20/19 16:37 06/20/19 17:14 06/20/19 17:15 White Blood Count 7.4 x10^3/uL (4.0-11.0) Red Blood Count 3.22 x10^6/uL (3.50-5.40) Hemoglobin 9.9 g/dL (12.0-15.5) Hematocrit 30.2 % (36.0-47.0) Mean Corpuscular Volume 94 fL (79-100) Mean Corpuscular Hemoglobin 31 pg (25-35) Mean Corpuscular Hemoglobin Concent 33 g/dL (31-37) Red Cell Distribution Width 14.8 % (11.5-14.5) Platelet Count 327 x10^3/uL (140-400) Neutrophils (%) (Auto) 56 % (31-73) Lymphocytes (%) (Auto) 34 % (24-48) Monocytes (%) (Auto) 9 % (0-9) Eosinophils (%) (Auto) 0 % (0-3) Basophils (%) (Auto) 1 % (0-3) Neutrophils # (Auto) 4.1 x10^3/uL (1.8-7.7) Lymphocytes # (Auto) 2.5 x10^3/uL (1.0-4.8) Monocytes # (Auto) 0.6 x10^3/uL (0.0-1.1) Eosinophils # (Auto) 0.0 x10^3/uL (0.0-0.7) Basophils # (Auto) 0.1 x10^3/uL (0.0-0.2) Troponin I Quantitative < 0.017 ng/mL (0.000-0.055) < 0.017 ng/mL (0.000-0.055) Glucose (Fingerstick) 266 mg/dL (70-99) Sodium Level 140 mmol/L (136-145) Potassium Level 3.8 mmol/L (3.5-5.1) Chloride Level 106 mmol/L (98-107) Carbon Dioxide Level 17 mmol/L (21-32) Anion Gap 17 (6-14) Blood Urea Nitrogen 5 mg/dL (7-20) Creatinine 0.7 mg/dL (0.6-1.0) Estimated GFR (Cockcroft-Gault) 113.9 BUN/Creatinine Ratio 7 (6-20) Glucose Level 260 mg/dL (70-99) Calcium Level 8.5 mg/dL (8.5-10.1) Phosphorus Level 1.3 mg/dL (2.6-4.7) Magnesium Level 1.6 mg/dL (1.8-2.4) Total Bilirubin 0.6 mg/dL (0.2-1.0) Aspartate Amino Transf (AST/SGOT) 10 U/L (15-37) Alanine Aminotransferase (ALT/SGPT) 9 U/L (14-59) Alkaline Phosphatase 61 U/L (46-116) Total Protein 7.3 g/dL (6.4-8.2) Albumin 3.0 g/dL (3.4-5.0) Albumin/Globulin Ratio 0.7 (1.0-1.7) Test 06/20/19 20:56 06/20/19 23:35 06/21/19 04:45 06/21/19 07:28 Glucose (Fingerstick) 182 mg/dL (70-99) 323 mg/dL (70-99) Urine Collection Type Unknown Urine Color Yellow Urine Clarity Clear Urine pH 6.[address] 1.025 Urine Protein Negative mg/dL (NEG-TRACE) Urine Glucose (UA) >=1000 mg/dL (NEG) Urine Ketones (Stick) >=80 mg/dL (NEG) Urine Blood Negative (NEG) Urine Nitrite Negative (NEG) Urine Bilirubin Negative (NEG) Urine Urobilinogen Dipstick 1.0 mg/dL (0.2 mg/dL) Urine Leukocyte Esterase Negative (NEG) Urine RBC 1-2 /HPF (0-2) Urine WBC 5-10 /HPF (0-4) Urine Squamous Epithelial Cells Few /LPF Urine Bacteria Few /HPF (0-FEW) Urine Mucus Slight /LPF Urine Opiates Screen Neg (NEG) Urine Methadone Screen Neg (NEG) Urine Barbiturates Neg (NEG) Urine Phencyclidine Screen Neg (NEG) Urine Amphetamine/Methamphetamine Neg (NEG) Urine Benzodiazepines Screen Neg (NEG) Urine Cocaine Screen Neg (NEG) Urine Cannabinoids Screen Neg (NEG) Urine Ethyl Alcohol Neg (NEG) White Blood Count 5.9 x10^3/uL (4.0-11.0) Red Blood Count 3.57 x10^6/uL (3.50-5.40) Hemoglobin 11.0 g/dL (12.0-15.5) Hematocrit 34.3 % (36.0-47.0) Mean Corpuscular Volume 96 fL (79-100) Mean Corpuscular Hemoglobin 31 pg (25-35) Mean Corpuscular Hemoglobin Concent 32 g/dL (31-37) Red Cell Distribution Width 15.3 % (11.5-14.5) Platelet Count 300 x10^3/uL (140-400) Neutrophils (%) (Auto) 53 % (31-73) Lymphocytes (%) (Auto) 39 % (24-48) Monocytes (%) (Auto) 6 % (0-9) Eosinophils (%) (Auto) 1 % (0-3) Basophils (%) (Auto) 0 % (0-3) Neutrophils # (Auto) 3.1 x10^3/uL (1.8-7.7) Lymphocytes # (Auto) 2.3 x10^3/uL (1.0-4.8) Monocytes # (Auto) 0.4 x10^3/uL (0.0-1.1) Eosinophils # (Auto) 0.1 x10^3/uL (0.0-0.7) Basophils # (Auto) 0.0 x10^3/uL (0.0-0.2) Sodium Level 136 mmol/L (136-145) Potassium Level 4.6 mmol/L (3.5-5.1) Chloride Level 103 mmol/L (98-107) Carbon Dioxide Level 10 mmol/L (21-32) Anion Gap 23 (6-14) Blood Urea Nitrogen 5 mg/dL (7-20) Creatinine 0.8 mg/dL (0.6-1.0) Estimated GFR (Cockcroft-Gault) 97.7 BUN/Creatinine Ratio 6 (6-20) Glucose Level 360 mg/dL (70-99) Calcium Level 8.8 mg/dL (8.5-10.1) Total Bilirubin 0.6 mg/dL (0.2-1.0) Aspartate Amino Transf (AST/SGOT) 12 U/L (15-37) Alanine Aminotransferase (ALT/SGPT) 8 U/L (14-59) Alkaline Phosphatase 70 U/L (46-116) Total Protein 7.8 g/dL (6.4-8.2) Albumin 3.1 g/dL (3.4-5.0) Albumin/Globulin Ratio 0.7 (1.0-1.7) Triglycerides Level 56 mg/dL (0-150) Cholesterol Level 170 mg/dL (0-200) LDL Cholesterol, Calculated 98 mg/dL (0-100) VLDL Cholesterol, Calculated 11 mg/dL (0-40) Non-HDL Cholesterol Calculated 109 mg/dL (0-129) HDL Cholesterol 61 mg/dL (40-60) Cholesterol/HDL Ratio 2.8 Test 06/21/19 10:50 06/21/19 11:35 06/21/19 11:47 06/21/19 13:55 Glucose Level 81 mg/dL (70-99) 183 mg/dL (70-99) Lactic Acid Level 1.8 mmol/L (0.4-2.0) Phosphorus Level 0.9 mg/dL (2.6-4.7) 3.1 mg/dL (2.6-4.7) Magnesium Level 1.9 mg/dL (1.8-2.4) Glucose (Fingerstick) 36 mg/dL (70-99) 210 mg/dL (70-99) Sodium Level 136 mmol/L (136-145) Potassium Level 3.6 mmol/L (3.5-5.1) Chloride Level 104 mmol/L (98-107) Carbon Dioxide Level 16 mmol/L (21-32) Anion Gap 16 (6-14) Blood Urea Nitrogen 3 mg/dL (7-20) Creatinine 0.7 mg/dL (0.6-1.0) Estimated GFR (Cockcroft-Gault) 113.9 Calcium Level 8.0 mg/dL (8.5-10.1) Albumin 2.8 g/dL (3.4-5.0) Test 06/21/19 16:48 06/21/19 21:00 06/21/19 21:54 06/22/19 04:25 Glucose (Fingerstick) 221 mg/dL (70-99) 131 mg/dL (70-99) Sodium Level 140 mmol/L (136-145) 141 mmol/L (136-145) Potassium Level 3.4 mmol/L (3.5-5.1) 3.2 mmol/L (3.5-5.1) Chloride Level 106 mmol/L (98-107) 107 mmol/L (98-107) Carbon Dioxide Level 18 mmol/L (21-32) 25 mmol/L (21-32) Anion Gap 16 (6-14) 9 (6-14) Blood Urea Nitrogen 2 mg/dL (7-20) 2 mg/dL (7-20) Creatinine 0.8 mg/dL (0.6-1.0) 0.8 mg/dL (0.6-1.0) Estimated GFR (Cockcroft-Gault) 97.7 97.7 Glucose Level 165 mg/dL (70-99) 259 mg/dL (70-99) Calcium Level 8.3 mg/dL (8.5-10.1) 8.2 mg/dL (8.5-10.1) Phosphorus Level 2.2 mg/dL (2.6-4.7) 2.6 mg/dL (2.6-4.7) Albumin 2.8 g/dL (3.4-5.0) 2.7 g/dL (3.4-5.0) Test 06/22/19 07:59 Glucose (Fingerstick) 309 mg/dL (70-99) Laboratory Tests Test 06/21/19 13:55 06/21/19 16:48 06/21/19 21:00 06/21/19 21:54 Sodium Level 136 mmol/L (136-145) 140 mmol/L (136-145) Potassium Level 3.6 mmol/L (3.5-5.1) 3.4 mmol/L (3.5-5.1) Chloride Level 104 mmol/L (98-107) 106 mmol/L (98-107) Carbon Dioxide Level 16 mmol/L (21-32) 18 mmol/L (21-32) Anion Gap 16 (6-14) 16 (6-14) Blood Urea Nitrogen 3 mg/dL (7-20) 2 mg/dL (7-20) Creatinine 0.7 mg/dL (0.6-1.0) 0.8 mg/dL (0.6-1.0) Estimated GFR (Cockcroft-Gault) 113.9 97.7 Glucose Level 183 mg/dL (70-99) 165 mg/dL (70-99) Calcium Level 8.0 mg/dL (8.5-10.1) 8.3 mg/dL (8.5-10.1) Phosphorus Level 3.1 mg/dL (2.6-4.7) 2.2 mg/dL (2.6-4.7) Albumin 2.8 g/dL (3.4-5.0) 2.8 g/dL (3.4-5.0) Glucose (Fingerstick) 221 mg/dL (70-99) 131 mg/dL (70-99) Test 06/22/19 04:25 06/22/19 07:59 Sodium Level 141 mmol/L (136-145) Potassium Level 3.2 mmol/L (3.5-5.1) Chloride Level 107 mmol/L (98-107) Carbon Dioxide Level 25 mmol/L (21-32) Anion Gap 9 (6-14) Blood Urea Nitrogen 2 mg/dL (7-20) Creatinine 0.8 mg/dL (0.6-1.0) Estimated GFR (Cockcroft-Gault) 97.7 Glucose Level 259 mg/dL (70-99) Calcium Level 8.2 mg/dL (8.5-10.1) Phosphorus Level 2.6 mg/dL (2.6-4.7) Albumin 2.7 g/dL (3.4-5.0) Glucose (Fingerstick) 309 mg/dL (70-99) Medications Current Medications Aspirin (Children'S Aspirin) 324 mg 1X ONCE PO Last administered on 06/20/19at 07:18; Start 06/20/19 at 07:00; Stop 06/20/19 at 07:01; Status DC Sodium Chloride 1,000 ml @ 1,000 mls/hr Q1H IV Last administered on 06/20/19at 07:17; Start 06/20/19 at 06:45; Stop 06/20/19 at 07:44; Status DC Ondansetron HCl (Zofran) 4 mg 1X ONCE IV Last administered on 06/20/19at 07:18; Start 06/20/19 at 07:00; Stop 06/20/19 at 07:01; Status DC Famotidine (Pepcid Vial) 20 mg 1X ONCE IVP Last administered on 06/20/19at 07 :18; Start 06/20/19 at 07:00; Stop 06/20/19 at 07:01; Status DC Lorazepam (Ativan Inj) 1 mg 1X ONCE IVP Last administered on 06/20/19at 07:18; Start 06/20/19 at 07:30; Stop 06/20/19 at 07:31; Status DC Sodium Chloride 1,000 ml @ 1,000 mls/hr 1X ONCE IV Last administered on 06/20/19at 09:09; Start 06/20/19 at 09:00; Stop 06/20/19 at 09:59; Status DC Potassium Chloride (Klor-Con) 40 meq 1X ONCE PO Last administered on 06/20/19at 09:16; Start 06/20/19 at 09:30; Stop 06/20/19 at 09:31; Status DC Insulin Human Regular 150 unit/ Sodium Chloride 151.5 ml @ 0 mls/hr CONT PRN PRN IV VOMITING; Start 06/20/19 at 10:00; Stop 06/21/19 at 13:00; Status DC Potassium Chloride/Water 100 ml @ 100 mls/hr PRN Q1HR PRN IV PER PROTOCOL; Start 06/20/19 at 10:00 Potassium Chloride/Water 100 ml @ 100 mls/hr PRN Q1HR PRN IV PER PROTOCOL; Start 06/20/19 at 10:00 Insulin Human Lispro (HumaLOG) 0-5 UNITS TIDWMEALS SQ Last administered on 06/22/19at 08:29; Start 06/20/19 at 12:00; Stop 06/22/19 at 09:08; Status DC Dextrose (Dextrose 50%-Water Syringe) 12.5 gm PRN Q15MIN PRN IV SEE COMMENTS Last administered on 06/21/19at 11:40; Start 06/20/19 at 11:15; Stop 06/22/19 at 09:11; Status DC Insulin Glargine (Lantus Syringe) 10 unit QHS SQ ; Start 06/20/19 at 21:00; Stop 06/20/19 at 18:21; Status DC Insulin Human Lispro (HumaLOG) 5 units TIDWMEALS SQ Last administered on 06/20/19 16:39; Start 06/20/19 at 12:00; Stop 06/20/19 at 18:21; Status DC Ringer's Solution 1,000 ml @ 100 mls/hr Q10H IV Last administered on 06/22/19 03:18; Start 06/20/19 at 12:00 Potassium Chloride/Water 100 ml @ 100 mls/hr Q1H IV Last administered on 06/20/19 22:56; Start 06/20/19 at 12:00; Stop 06/20/19 at 19:59; Status DC Oxycodone/ Acetaminophen (Percocet 5/325) 1 tab PRN Q4HRS PRN PO PAIN Last administered on 06/22/19 08:38; Start 06/20/19 at 13:45 Lidocaine (Lidoderm) 1 patch DAILY TD Last administered on 06/22/19 08:15; Start 06/20/19 at 14:00 Miscellaneous (Lidoderm Patch Removal) 1 ea QHS MC Last administered on 06/21/19 21:53; Start 06/20/19 at 21:00 Lorazepam (Ativan Inj) 1 mg PRN Q4HRS PRN IVP ANXIETY / AGITATION Last administered on 06/20/19 16:35; Start 06/20/19 at 14:30 Haloperidol Lactate (Haldol Inj) 5 mg PRN Q6HRS PRN IVP AGITATION; Start 06/20/19 at 14:45 Enoxaparin Sodium (Lovenox Per Pharmacy Prophylaxis Dosing) 1 each PRN DAILY PRN MC SEE COMMENTS; Start 06/20/19 at 16:45 Enoxaparin Sodium (Lovenox 40mg Syringe) 40 mg Q24H SQ Last administered on 06/21/19 21:58; Start 06/20/19 at 21:00 Ondansetron HCl (Zofran) 8 mg PRN Q8HRS PRN IVP NAUSEA/VOMITING Last administered on 06/21/19 21:46; Start 06/20/19 at 18:30 Ondansetron HCl (Zofran) 8 mg PRN Q8HRS PRN IVP NAUSEA/VOMITING; Start 06/20/19 at 18:30; Status UNV Insulin Glargine (Lantus Syringe) 13 unit QHS SQ Last administered on 06/21/19at 22:01; Start 06/20/19 at 21:00 Insulin Human Lispro (HumaLOG) 8 units TIDWMEALS SQ Last administered on 06/22/19at 08:31; Start 06/21/19 at 08:00; Stop 06/22/19 at 09:08; Status DC Magnesium Sulfate 50 ml @ 25 mls/hr 1X ONCE IV Last administered on 06/21/19at 01:24; Start 06/20/19 at 19:00; Stop 06/20/19 at 20:59; Status DC Iohexol (Omnipaque 240 Mg/ml) 30 ml 1X ONCE PO ; Start 06/20/19 at 19:15; Stop 06/20/19 at 19:16; Status DC Iohexol (Omnipaque 300 Mg/ml) 75 ml 1X ONCE IV ; Start 06/20/19 at 19:15; Stop 06/20/19 at 19:16; Status DC Info (CONTRAST GIVEN -- Rx MONITORING) 1 each PRN DAILY PRN MC SEE COMMENTS; Start 06/20/19 at 19:30; Stop 06/21/19 at 12:12; Status DC Sodium Bicarbonate (Sodium Bicarbonate) 1,300 mg TID PO Last administered on 06/22/19at 08:15; Start 06/21/19 at 09:00 Insulin Human Lispro (HumaLOG) 12 units 1X ONCE SQ Last administered on 06/21/19at 08:13; Start 06/21/19 at 07:00; Stop 06/21/19 at 07:01; Status DC Iohexol (Omnipaque 300 Mg/ml) 75 ml 1X ONCE IV Last administered on 06/21/19at 09:00; Start 06/21/19 at 09:00; Stop 06/21/19 at 09:01; Status DC Iohexol (Omnipaque 240 Mg/ml) 30 ml 1X ONCE PO Last administered on 06/21/19at 09:00; Start 06/21/19 at 09:00; Stop 06/21/19 at 09:01; Status DC Info (CONTRAST GIVEN -- Rx MONITORING) 1 each PRN DAILY PRN MC SEE COMMENTS; Start 06/21/19 at 08:45; Stop 06/23/19 at 08:44 Ketorolac Tromethamine (Toradol 30mg Vial) 30 mg PRN Q6HRS PRN IVP INFLAMMATION Last administered on 06/21/19at 10:32; Start 06/21/19 at 10:30; Stop 06/26/19 at 10:29 Sodium Phosphate 20 mmol/Dextrose 256.6667 ml @ 64.167 m... 1X ONCE IV Last administered on 06/21/19at 12:45; Start 06/21/19 at 12:00; Stop 06/21/19 at 15:59; Status DC Hydromorphone HCl (Dilaudid) 0.4 mg PRN Q4HRS PRN IVP PAIN Last administered on 06/22/19at 03:18; Start 06/21/19 at 12:15 Pantoprazole Sodium (Protonix) 40 mg DAILYAC PO Last administered on 06/22/19at 08:15; Start 06/21/19 at 13:00 Cyclobenzaprine HCl (Flexeril) 10 mg PRN Q6HRS PRN PO MUSCLE SPASMS Last ad ministered on 06/21/19at 21:47; Start 06/21/19 at 12:30 Insulin Human Lispro (HumaLOG) 12 units TIDWMEALS SQ ; Start 06/22/19 at 09:30 Insulin Human Lispro (HumaLOG) 0-7 UNITS TIDACHC SQ ; Start 06/22/19 at 11:30 Dextrose (Dextrose 50%-Water Syringe) 12.5 gm PRN Q15MIN PRN IV SEE COMMENTS; Start 06/22/19 at 09:15 Potassium Chloride/Water 100 ml @ 100 mls/hr Q1H IV ; Start 06/22/19 at 10:00; Stop 06/22/19 at 13:59 Potassium Chloride (Klor-Con) 40 meq 1X ONCE PO Last administered on 06/22/19at 11:09; Start 06/22/19 at 10:00; Stop 06/22/19 at 10:01; Status DC Active Scripts Active Jardiance (Empagliflozin) 10 Mg Tablet 10 Mg PO DAILY 30 Days Levemir Flextouch (Insulin Detemir) 100 Unit/1 Ml Insuln.pen 13 Unit SQ QHS 30 Days Pantoprazole Sodium (Pantoprazole Sodium) 40 Mg Tablet.dr 40 Mg PO DAILYAC 30 Days Vitals/I & O Vital Sign - Last 24 Hours 06/21/19 06/21/19 06/21/19 06/21/19 12:46 15:14 15:42 19:00 Temp 97.4 98.4 97.4 98.4 Pulse 100 112 Resp 18 16 B/P (MAP) 129/88 (102) 117/73 (88) Pulse Ox 96 96 99 98 O2 Delivery Room Air Room Air Room Air Room Air O2 Flow Rate 98.0 98.0 06/21/19 06/21/19 06/21/19 06/21/19 20:00 21:46 22:16 23:00 Temp 98.4 98.4 Pulse 109 Resp 20 18 16 B/P (MAP) 95/56 (69) Pulse Ox 97 O2 Delivery Room Air Room Air Room Air Room Air 06/22/19 06/22/19 06/22/19 06/22/19 03:00 03:18 03:48 07:00 Temp 98.5 98.8 98.5 98.8 Pulse 94 98 Resp 16 20 18 16 B/P (MAP) 118/76 (90) 121/88 (99) Pulse Ox 95 96 O2 Delivery Room Air Room Air Room Air Room Air 06/22/19 08:10 O2 Delivery Room Air Intake and Output 06/21/19 06/21/19 06/22/19 15:00 23:00 07:00 Intake Total 580 ml 240 ml Output Total 1200 ml 1100 ml 200 ml Balance -1200 ml -520 ml 40 ml Problem List Problems Medical Problems: (1) Acute back pain Status: Acute (2) Anxiety Status: Acute (3) Anxiety disorder Status: Acute (4) Chest pain Status: Acute (5) DKA (diabetic ketoacidoses) Status: Acute (6) Hypokalemia Status: Acute (7) Nausea and vomiting Status: Acute (8) Non-cardiac chest pain Status: Acute (9) Polyp of gallbladder Status: Acute (10) T1DM (type 1 diabetes mellitus) Status: Chronic Assessment N/V- most likely secondary to diabetic gastroparesis. half-way improved gl ycemic control suggested, patient to fu with [facility] JOSE CALHOUN MD Jun 22, 2019 12:17
--- NOTE | 2019-06-22 12:57 | NUR ---
Discharge: Teaching verbal and written written. Reviewed medications, follow-up, insulin, diabetes, wound care, meal planning, ect. Patient verbalized understanding. 3 written prescriptions given to patient. All belongings with patient including phone, laptop, purse and chargers, ect. Patient ambulated off of unit accompanied by nurse and boyfriend.
[2019-06-22] MEDS ORDERED: INSU100V6 SQ (13:13)
== END 2019-06-22 12:55 | disposition home or self-care (01) | DRG 637 ==
LOC: EDSEX 06:24 → ER 06:24 → 1 WEST ICU 09:21 → 2 SOUTH 18:00
PROVIDERS: ADMIT Internal Medicine; ATTEND Internal Medicine
DX: E10.10 Type 1 diabetes mellitus with ketoacidosis without coma (principal); N17.0 Acute kidney failure with tubular necrosis; E83.39 Other disorders of phosphorus metabolism; E10.42 Type 1 diabetes mellitus with diabetic polyneuropathy; E10.43 Type 1 diabetes mellitus with diabetic autonomic (poly)neuropathy; E87.6 Hypokalemia; F41.9 Anxiety disorder, unspecified; G89.29 Other chronic pain; K21.9 Gastro-esophageal reflux disease without esophagitis; K31.84 Gastroparesis; K82.4 Cholesterolosis of gallbladder; Z79.4 Long term (current) use of insulin; Z98.51 Tubal ligation status; R07.89 Other chest pain; Z79.899 Other long term (current) drug therapy
CPT/HCPCS: 36415; 36600; 71045; 74177; 76705; 80053; 80061; 80069; 80307; 81001; 82550; 82805; 82947; 82962; 83605; 83690; 83735; 83880; 84100; 84484; 85025; 85379; 85610; 87086; 93005; 93306; 96361; 96374; 96375; J1170; J1650; J1815; J1885; J2060; J2405; J3475; J3480; J3490; J7030; J7042; J7120; Q9966; Q9967; 97110; 97530; 99291-25; G0378

== ENCOUNTER 2020-09-09 21:37 | Emergency (ER) | payer MEDICAID, OTHER ==
[~2020-09-09] VITALS: Ht 152.4 cm; Wt 52.3 kg
[~2020-09-09 21:37] MED LIST: EMPA10TA PO; INSU100I27 SQ; INSU100V6 SQ; PANT40TA77 PO
--- NOTE | 2020-09-09 22:27 | RAD ---
2 views of the right foot dated 09/09/2020. No comparison available. Clinical data indication: Pain after fall. FINDINGS: 3 views of the right foot show normal bony alignment. No displaced fracture. No acute osseous or yan cular abnormality. No periostitis or bone destruction. IMPRESSION: No acute radiographic abnormality. Electronically signed by: Ritesh De MD (09/09/2020 10:25 PM) [id number]
[2020-09-09 22:30] VITALS: BP 171/117
--- NOTE | 2020-09-09 22:42 | ED.ADGEN ---
Past Medical History Past Medical History: Diabetes-Type I, Other Additional Past Medical Histor: gastroparesis Past Surgical History: Tubal ligation, Other Additional Past Surgical Histo: "METAL IN L KNEE" Smoking Status: Never Smoker Alcohol Use: Occasionally Drug Use: None General Adult EDM: Chief Complaint: TOE PROBLEM HPI: HPI: Patient is a 39 year old AA female who presents to the emergency department with complaints of right lateral foot and fifth toe pain, and bruising after the front of a drawer fell on her foot yesterday while she was at home. Patient reports history of neuropathy in her feet, she denies any decreased sensation. She denies any bleeding or drainage from the site. Patient states she has been able to ambulate without any difficulty. She currently denies any pain. Review of Systems: Review of Systems: Complete ROS is negative unless otherwise noted in HPI. Allergies: Allergies: Allergies Coded Allergies Type Severity Reaction Last Updated Verified No Known Drug Allergies 06/20/19 No Physical Exam: PE: See Above Constitutional: Well developed, well nourished, no acute distress, non-toxic appearance. [] HENT: Normocephalic, atraumatic, bilateral external ears normal, nose normal. [] Eyes: PERRLA, EOMI, conjunctiva normal, no discharge. [] Neck: Normal range of motion, no stridor. [] Cardiovascular:Heart rate regular rhythm Lungs & Thorax: Respirations even and unlabored, no retractions, no respiratory distress Skin: Warm, dry, no erythema, no rash; bruising to the lateral right foot and fifth toe, no abrasion, no drainage, no warmth. [] Extremities: Right foot: lateral tenderness to palpation without crepitus or obvious deformity, no cyanosis, ROM intact, 1+ edema to lateral right foot, 2+ pedal pulse Neurologic: Alert and oriented X 3, no focal deficits noted. [] Psychologic: Affect normal, judgement normal, mood normal. [] Current Patient Data: Vital Signs: Vital Signs Date Time Temp Pulse Resp B/P (MAP) Pulse Ox O2 Delivery O2 Flow Rate FiO2 09/09/20 21:42 98.7 120 16 155/110 (125) 98 Room Air 98.7 EKG: EKG: [] Heart Score: Risk Factors: Risk Factors: DM, Current or recent (<one month) smoker, HTN, HLP, family history of CAD, obesity. Risk Scores: Score 0 - 3: 2.5% MACE over next 6 weeks - Discharge Home Score 4 - 6: 20.3% MACE over next 6 weeks - Admit for Clinical Observation Score 7 - 10: 72.7% MACE over next 6 weeks - Early Invasive Strategies Radiology/Procedures: Radiology/Procedures: PROCEDURE: FOOT RIGHT 3V 2 views of the right foot dated 09/09/2020. No comparison available. Clinical data indication: Pain after fall. FINDINGS: 3 views of the right foot show normal bony alignment. No displaced fracture. No acute osseous or articular abnormality. No periostitis or bone destruction. IMPRESSION: No acute radiographic abnormality. Electronically signed by: Ritesh De MD (09/09/2020 10:25 PM) [id number][] Course & Med Decision Making: Course & Med Decision Making Pertinent Labs and Imaging studies reviewed. (See chart for details) [] Dragon Disclaimer: Dragon Disclaimer: This electronic medical record was generated, in whole or in part, using a voice recognition dictation system. Departure Departure Impression: Primary Impression: Contusion of right foot including toes Disposition: 01 DC HOME SELF CARE/HOMELESS Condition: STABLE Referrals: UNKNOWN PCP NAME (PCP) Patient Instructions: Contusion, [id number], Crush Injury, Fingers or Toes, [id number] Additional Instructions: You may take Tylenol or ibuprofen as needed for pain. Your x-ray revealed no acute fracture or dislocation. Follow-up with your primary care doctor next week, return to the ER if symptoms worsen. Problem Qualifiers Primary Impression: Contusion of right foot including toes Encounter type: initial encounter Qualified Codes: S90.31XA - Contusion of right foot, initial encounter; S90.121A - Contusion of right lesser toe(s) without damage to nail, initial encounter LAURITA PEDRAZA APRN Sep 09, 2020 22:42
== END 2020-09-09 22:46 | disposition home or self-care (01) ==
LOC: ER 21:37
DX: S90.121A Contusion of right lesser toe(s) without damage to nail, initial encounter (principal); S90.31XA Contusion of right foot, initial encounter; R60.0 Localized edema; E10.9 Type 1 diabetes mellitus without complications; Z98.51 Tubal ligation status; Z98.890 Other specified postprocedural states; W18.39XA Other fall on same level, initial encounter; Y93.89 Activity, other specified; Y92.89 Other specified places as the place of occurrence of the external cause; Y99.8 Other external cause status
CPT/HCPCS: 73630; 99283